=== PATIENT | male | born 1955 | race Caucasian/White ===

== ENCOUNTER 2017-03-08 11:08 | Emergency (ER) | payer MEDICAID ==
[2017-03-08 11:13] VITALS: BP 160/99
[2017-03-08] MEDS ORDERED: diphenhydrAMINE 50 MG/ML SDV IM ONE (11:13)
[2017-03-08] MEDS ORDERED: methylPREDNISolone Sodium Succinate 125 MG/2 ML SDV IM ONE (11:13)
--- NOTE | 2017-03-08 11:25 | EDM.PDOC ---
ED HPI GENERAL MEDICAL PROBLEM - General Chief Complaint: Allergic Reaction Stated Complaint: BEE STING Time Seen by Provider: 03/08/17 11:20 Source of Information: Reports: Patient History Limitations: Reports: No Limitations - History of Present Illness INITIAL COMMENTS - FREE TEXT/NARRATIVE: History of bee allergy. Was stung about 30 minutes ago x 2 to right arm. Did not use his Epipen. Does not feel short of breath. No rash yet. Onset: Today Onset Date: 03/08/17 Onset Time: 10:45 Location: Reports: Upper Extremity, Right Quality: Reports: Burning Improves with: Reports: None Worsens with: Reports: None Associated Symptoms: Reports: No Other Symptoms Right Arm Pain Score (Numeric/FACES): 5 - Related Data Allergies Allergy/AdvReac Type Severity Reaction Status Date / Time venom-honey bee Allergy Anaphylactic Verified 11/16/13 10:09 [bee venom (honey bee)] Shock alcohol AdvReac Hypertensio Verified 11/16/13 11:29 n codeine AdvReac Confusion Verified 11/16/13 11:29 lisinopril AdvReac Cough Verified 11/16/13 11:29 Penicillins AdvReac Confusion Verified 11/16/13 11:29 Home Meds: Home Meds Aspirin [Halfprin] 81 mg PO DAILY 03/28/13 [History] Insulin Glargine,Hum.Rec.Anlog [Lantus Solostar] 10 units SQ BEDTIME 03/28/13 [ History] Propranolol HCl 80 mg PO DAILY 03/28/13 [History] metFORMIN [Glucophage] 1,000 mg PO BID 03/28/13 [History] Alum Hydroxide/Mag Trisilcate 14.2 - 80 tab.chew PO PRN 08/11/13 [History] Triamterene-Hctz 25 - 37.5 mg PO DAILY 08/11/13 [History] Albuterol Sulfate [Albuterol Sulfate HFA] 108 mcg IH QID PRN 11/14/13 [History] Losartan [Cozaar] 25 mg PO DAILY 11/14/13 [History] Past Medical History Other Neuro History: had spinal menengitis when he was 6 that hurt his nervous system Endocrine/Metabolic History: Reports: 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 - Infectious Disease History Infectious Disease History: Reports: Chicken Pox, Mumps Social & Family History - Family History Family Medical History: Noncontributory - Tobacco Use Smoking Status *Q: Heavy Tobacco Smoker Years of Tobacco use: 30 Packs/Tins Daily: 1 Used Tobacco, but Quit: No Second Hand Smoke Exposure: Yes - Caffeine Use Caffeine Use: Reports: Coffee - Alcohol Use Days Per Week of Alcohol Use: 0 - Recreational Drug Use Recreational Drug Use: No ED ROS ALLERGIC REACTION - Review of Systems Review Of Systems: See Below Constitutional: Reports: No Symptoms HEENT: Reports: No Symptoms Respiratory: Reports: No Symptoms Cardiovascular: Reports: No Symptoms Endocrine: Reports: No Symptoms GI/Abdominal: Reports: No Symptoms Musculoskeletal: Reports: No Symptoms Skin: Reports: Diaphoresis, Rash (small papular rash x 2 to right arm) ED EXAM GENERAL NO PERIP PULSE - Physical Exam Exam: See Below Exam Limited By: No Limitations General Appearance: Alert, WD/WN, No Apparent Distress Ears: Normal External Exam, Normal Canal, Hearing Grossly Normal, Normal TMs Nose: Normal Inspection, Normal Mucosa, No Blood Throat/Mouth: Normal Inspection, Normal Lips, Normal Teeth, Normal Gums, Normal Oropharynx, Normal Voice, No Airway Compromise Head: Atraumatic, Normocephalic Neck: Normal Inspection, Supple, Non-Tender, Full Range of Motion Respiratory/Chest: No Respiratory Distress, Lungs Clear, Normal Breath Sounds, No Accessory Muscle Use, Chest Non-Tender Cardiovascular: Normal Peripheral Pulses, Regular Rate, Rhythm, No Edema, No Gallop, No JVD, No Murmur, No Rub Neurological: Alert, Oriented, CN II-XII Intact, Normal Cognition, Normal Gait, Normal Reflexes, No Motor/Sensory Deficits Skin Exam: Other (small reddened nodules x 2 to right arm) Course - Vital Signs Last Recorded V/S: Last Vital Signs Temp 96.1 F 03/08/17 11:13 Pulse 91 03/08/17 11:13 Resp 16 03/08/17 11:13 BP 160/99 H 03/08/17 11:13 Pulse Ox 99 03/08/17 11:13 - Orders/Labs/Meds Meds: Medications Discontinued Medications Generic Name Dose Route Start Last Admin Trade Name Freq PRN Reason Stop Dose Admin Diphenhydramine HCl 50 mg 03/08/17 11:13 03/08/17 11:19 Benadryl IM 03/08/17 11:14 50 mg ONETIME ONE Administration Methylprednisolone Sodium Succinate 125 mg 03/08/17 11:13 03/08/17 11:19 Solu-Medrol IM 03/08/17 11:14 125 mg ONETIME ONE Administration Departure - Departure Time of Disposition: 11:46 Disposition: Home, Self-Care 01 Condition: Good Clinical Impression: Bee sting Qualifiers: Encounter type: initial encounter Injury intent: accidental or unintentional Qualified Code(s): T63.441A - Toxic effect of venom of bees, accidental ( unintentional), initial encounter - Discharge Information Instructions: Anaphylactic Reaction Referrals: PCP,None [Primary Care Provider] - Forms: ED Department Discharge Additional Instructions: Benadryl 50mg IM, Solumedrol 125mg IM given with good response. Pt with improved symptoms. Never develops hives. Reaction remains localized. New Rx for Epipen given. Explained its use and indications. Pt may take Zyrtec 10mg daily x 1 week. May also use Benadryl 50mg every 8 hours as needed. - Problem List & Annotations (1) Bee sting SNOMED Code(s): 089396594 Code(s): T63.441A - TOXIC EFFECT OF VENOM OF BEES, ACCIDENTAL, INIT Status : Acute Priority: Low Current Visit: Yes Qualifiers: Encounter type: initial encounter Injury intent: accidental or unintentional Qualified Code(s): T63.441A - Toxic effect of venom of bees, accidental (unintentional), initial encounter
== END 2017-03-08 12:02 | disposition home or self-care (01) ==
LOC: JP.ED 11:08
DX: T63.441A Toxic effect of venom of bees, accidental (unintentional), initial encounter (principal); E11.9 Type 2 diabetes mellitus without complications; F17.210 Nicotine dependence, cigarettes, uncomplicated; Z79.4 Long term (current) use of insulin; Z79.899 Other long term (current) drug therapy; Z79.82 Long term (current) use of aspirin; Z88.0 Allergy status to penicillin; Z91.030 Bee allergy status; Z88.8 Allergy status to other drugs, medicaments and biological substances
CPT/HCPCS: 96372; 99283; J1200; J2930

== ENCOUNTER 2018-08-16 20:19 | Emergency (ER) | payer MEDICAID, OTHER ==
[2018-08-16 20:45] VITALS: BP 148/94
--- NOTE | 2018-08-16 21:11 | EDM.PDOC ---
ED HPI GENERAL MEDICAL PROBLEM - General Chief Complaint: Chest Pain Stated Complaint: CHEST PAINS Time Seen by Provider: 08/16/18 20:50 Source of Information: Reports: Patient, Family History Limitations: Reports: No Limitations - History of Present Illness INITIAL COMMENTS - FREE TEXT/NARRATIVE: 63-year-old male with left-sided anterior chest discomfort for the last 8 hours. It started gradually but has worsened as the day has gone on. It hurts to cough or breathe, or moves certain ways. The pain is very localized to the left anterior chest, does not radiate, causes no shortness of breath, diaphoresis or nausea or vomiting. He said his appetite is good. He has no abdominal symptoms. No fever, cough, cold symptoms, no previous history of chest pain or cardiac disease. Onset: Gradual Duration: Hour(s): (8 hours) Location: Reports: Chest Quality: Reports: Burning, Dull Worsens with: Reports: Breathing, Other (Coughing), Movement Associated Symptoms: Reports: No Other Symptoms Treatments [employer]ODU[employer] SUPER[employer]OR: Reports: Other (see below) Other Treatments [employer]ODU[employer] SUPER[employer]OR: none Epigastric Pain Score (Numeric/FACES): 4 - Related Data Allergies Allergy/AdvReac Type Severity Reaction Status Date / Time venom-honey bee Allergy Anaphylactic Verified 11/16/13 10:09 [bee venom (honey bee)] Shock alcohol AdvReac Hypertensio Verified 11/16/13 11:29 n codeine AdvReac Confusion Verified 11/16/13 11:29 lisinopril AdvReac Cough Verified 11/16/13 11:29 Penicillins AdvReac Confusion Verified 11/16/13 11:29 Home Meds: Home Meds Aspirin [Halfprin] 81 mg PO DAILY 03/28/13 [History] Insulin Glargine,Hum.Rec.Anlog [Lantus Solostar] 20 units SQ BID 03/28/13 [ History] Propranolol HCl 80 mg PO DAILY 03/28/13 [History] metFORMIN [Glucophage] 1,000 mg PO BID 03/28/13 [History] Alum Hydroxide/Mag Trisilcate 14.2 - 80 tab.chew PO DAILY 08/11/13 [History] Triamterene-Hctz 25 - 37.5 mg PO DAILY 08/11/13 [History] Albuterol Sulfate [Albuterol Sulfate HFA] 108 mcg IH QID PRN 11/14/13 [History] Losartan [Cozaar] 25 mg PO DAILY 11/14/13 [History] Past Medical History HEENT History: Reports: Hard of Hearing Other HEENT History: one ear is plugged and wont pop Cardiovascular History: Reports: Hypertension Gastrointestinal History: Reports: Other (See Below) Other Gastrointestinal History: diarrhea for the last 2-3 years of unknown origin Other Genitourinary History: renal cyst Musculoskeletal History: Reports: Back Pain, Chronic Other Neuro History: had spinal menengitis when he was 6 that hurt his nervous system Endocrine/Metabolic History: Reports: IDDM Other Oncologic History: 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 Denies: Throat Pain Respiratory: Reports: Pleuritic Chest Pain, Cough. Denies: Shortness of Breath Cardiovascular: Reports: Chest Pain. Denies: Dyspnea on Exertion, Palpitations GI/Abdominal: Denies: Abdominal Pain, Nausea, Vomiting : Reports: No Symptoms Musculoskeletal: Reports: Other (Chronic arthritis) Skin: Reports: No Symptoms Neurological: Reports: No Symptoms ED EXAM, GENERAL - Physical Exam Exam: See Below Exam Limited By: No Limitations General Appearance: Alert, No Apparent Distress Head: Atraumatic Neck: Supple, Non-Tender Respiratory/Chest: No Respiratory Distress, Lungs Clear, Other (Patient has focal chest tenderness to palpation along the left lateral costal chondral junction) Cardiovascular: Regular Rate, Rhythm GI/Abdominal: Soft, Non-Tender Extremities: Normal Inspection. No: Pedal Edema Neurological: Alert, Oriented Psychiatric: Normal Affect, Normal Mood Skin Exam: Warm, Dry Course - Vital Signs Last Recorded V/S: Last Vital Signs Temp 96.9 F 08/16/18 20:47 Pulse 71 08/16/18 20:47 Resp 16 08/16/18 20:47 BP 148/94 H 08/16/18 20:47 Pulse Ox 98 08/16/18 20:47 - Orders/Labs/Meds Labs: Laboratory Tests 08/16/18 08/16/18 Range/Units 21:18 21:18 WBC 9.0 (4.5-11.0) K/uL RBC 5.00 (4.30-5.90) M/uL Hgb 14.3 (12.0-15.0) g/dL Hct 42.8 (40.0-54.0) % MCV 86 (80-98) fL MCH 29 (27-31) pg MCHC 33 (32-36) % Plt Count 250 (150-400) K/uL Neut % (Auto) 54 (36-66) % Lymph % (Auto) 30 (24-44) % Shelby % (Auto) 12 H (2-6) % Eos % (Auto) 4 (2-4) % Baso % (Auto) 0 (0-1) % Sodium 143 (140-148) mmol/L Potassium 3.7 (3.6-5.2) mmol/L Chloride 103 (100-108) mmol/L Carbon Dioxide 31 (21-32) mmol/L Anion Gap 9.2 (5.0-14.0) mmol/L BUN 17 (7-18) mg/dL Creatinine 0.9 (0.8-1.3) mg/dL Est Cr Clr Drug Dosing 103.14 mL/min Estimated GFR (MDRD) > 60 (>60) Glucose 111 H (74-106) mg/dL Calcium 9.6 (8.5-10.1) mg/dL Total Bilirubin 0.4 (0.2-1.0) mg/dL AST 22 (15-37) U/L ALT 46 (12-78) U/L Alkaline Phosphatase 84 (46-116) U/L Troponin I < 0.017 (0.000-0.056) ng/mL Total Protein 7.3 (6.4-8.2) g/dL Albumin 3.8 (3.4-5.0) g/dL Globulin 3.5 (2.3-3.5) g/dL Albumin/Globulin Ratio 1.1 L (1.2-2.2) - Re-Assessments/Exams Free Text/Narrative Re-Assessment/Exam: 08/16/18 21:11 A two-view chest x-ray will be obtained, along with a CBC, CMP and troponin. 08/16/18 21:46 Lab and x-ray are all normal. He'll be diagnosed and discharged with costochondritis. Recommended an anti-inflammatory for the next couple of days and return if worsening. Departure - Departure Time of Disposition: 21:52 Disposition: Home, Self-Care 01 Condition: Good Clinical Impression: Costochondritis - Discharge Information Instructions: Costochondritis, [id number] Referrals: Micah Morton PA [Primary Care Provider] - Forms: ED Department Discharge Care Plan Goals: Try ibuprofen or naproxen for a couple of days, increase activity as tolerated and return anytime if worsening or concerns.
--- NOTE | 2018-08-16 21:56 | CRLCR ---
Indication: Dyspnea Technique: Chest 2 views Comparison: None Findings/Impression: Cardiovascular and mediastinum: Unremarkable cardiac size. Lungs and pleural spaces: Left hilar prominence could be related to central vasculature. Recommend followup. If indicated, consider CT. No consolidation. A tiny nodular opacity in the right upper lung could represent a vessel or a small granuloma. No pleural effusions. Bones and soft tissues: A scoliotic deformity. Dictated by Erik Garcia MD @ 08/16/2018 9:54:43 PM Dictated by: Erik Garcia MD @ 08/16/2018 21:54:54 (Electronically Signed)
== END 2018-08-16 21:53 | disposition home or self-care (01) ==
LOC: JP.ED 20:19
DX: M94.0 Chondrocostal junction syndrome [Tietze] (principal); I10 Essential (primary) hypertension; F17.290 Nicotine dependence, other tobacco product, uncomplicated; Z91.030 Bee allergy status; Z79.82 Long term (current) use of aspirin; Z79.899 Other long term (current) drug therapy; Z88.5 Allergy status to narcotic agent; Z88.0 Allergy status to penicillin
CPT/HCPCS: 36415; 71046; 80053; 84484; 85025; 99283

== ENCOUNTER 2019-09-07 07:43 | Day surgery (SDC) | payer OTHER ==
[~2019-09-07 07:43] MED LIST: Midazolam 1 MG/ML 2 ML SDV ONE; Propofol 200 MG/20 ML SDV ONE; fentaNYL 100 MCG/2 ML SDV ONE
[2019-09-07] MEDS ORDERED: Sodium Chloride 0.9% 1,000 ML IV SCH (08:30)
[2019-09-07 10:22] VITALS: BP 111/78; PULSE 83
--- NOTE | 2019-09-07 11:04 | OR ---
DATE OF PROCEDURE: 09/07/2019 SURGEON: Loyd Izaguirre MD PROCEDURE: Colonoscopy. FINDINGS: Sigmoid colon polyp, approximately 5 mm, completely removed using hot snare device. PREOPERATIVE DIAGNOSIS: Screening colonoscopy. POSTOPERATIVE DIAGNOSIS: Screening colonoscopy. RISKS: Risks, benefits, alternatives, and limitations including but not limited to infection, bleeding, and perforation were explained to the patient, who wished to proceed. PROCEDURE IN DETAIL: The patient was placed in a left lateral decubitus position. Digital rectal exam was performed without abnormality. Scope was introduced and advanced atraumatically to the ileocecal valve. Scope was brought back through the ascending, transverse, descending colon, and retroflexed. Aforementioned polyp was completely removed. No diverticulosis. No abnormalities on retroflexion. The patient tolerated the procedure well. Loyd Izaguirre MD /[id number]
== END 2019-09-07 10:37 | disposition home or self-care (01) ==
LOC: JP.SDS 07:43
PROVIDERS: ATTEND Surgery
DX: Z12.11 Encounter for screening for malignant neoplasm of colon (principal); K63.5 Polyp of colon; I10 Essential (primary) hypertension; E11.9 Type 2 diabetes mellitus without complications; F17.200 Nicotine dependence, unspecified, uncomplicated
CPT/HCPCS: 45385; J2250; J2704; J3010; J7030

== ENCOUNTER 2021-08-08 23:27 | Emergency (ER) | payer MEDICARE, BC ==
[2021-08-09 00:03] VITALS: BP 143/84; PULSE 93
== END 2021-08-09 01:23 | disposition home or self-care (01) ==
LOC: JP.ED 23:27
DX: I87.2 Venous insufficiency (chronic) (peripheral) (principal); E11.9 Type 2 diabetes mellitus without complications; I10 Essential (primary) hypertension; K21.9 Gastro-esophageal reflux disease without esophagitis; Z88.0 Allergy status to penicillin; Z88.5 Allergy status to narcotic agent; Z91.030 Bee allergy status; Z88.8 Allergy status to other drugs, medicaments and biological substances; Z79.82 Long term (current) use of aspirin; Z79.4 Long term (current) use of insulin; Z79.899 Other long term (current) drug therapy; Z72.0 Tobacco use
CPT/HCPCS: 36415; 80048; 83880; 84484; 85025; 99283; 99284

== ENCOUNTER 2022-11-18 12:41 | Emergency (ER) | payer MEDICARE, BC ==
[2022-11-18] MEDS ORDERED: Ondansetron 4 MG/2 ML SDV IVPUSH ONE (13:43)
[2022-11-18] MEDS ORDERED: Sodium Chloride 0.9% 1,000 ML IV SCH (13:45)
[2022-11-18 13:50] LABS: HEMATOCRIT 40.7 % (38.4-49.7); HEMOGLOBIN 14.6 g/dL (12.9-16.9); MEAN CORPUSCULAR HEMOGLOBIN 31.6 pg (31.6-35.5); MEAN CORPUSCULAR HGB CONC 35.9 g/dL (31.6-35.5); MEAN CORPUSCULAR VOLUME 88.1 fL (81.4-99.0); RED BLOOD CELL COUNT 4.62 M/uL (4.14-5.76); WHITE BLOOD CELL COUNT,WBC 9.4 K/uL (3.2-11.0)
[2022-11-18 14:00] LABS: BASE EXCESS VENOUS 2.1 mm/L; BICARBONATE,VENOUS 26.3 mmol/L; CARBOXYHEMOGLOBIN 2.5 % (0.0-1.6); METHEMOGLOBIN 0.8 %; O2 SATURATION VENOUS 82.5; OXYHEMOGLOBIN 79.8 %; PCO2 VENOUS 41.3 mm/Hg; PH,VENOUS 7.419 (7.350-7.450); PO2 VENOUS 48.7 mm/Hg; TOTAL HEMOGLOBIN 14.1 g/dL (13.5-18.0)
[2022-11-18 14:01] LABS: ALANINE AMINOTRANSFERASE,ALT 59 U/L (12-78); ALBUMIN 3.7 g/dL (3.4-5.0); ALKALINE PHOSPHATASE 90 U/L (46-116); ASPARTATE AMNIOTRANSFERASE,AST 43 U/L (15-37); BLOOD UREA NITROGEN,BUN 12 mg/dL (7-18); CALCIUM 9.6 mg/dL (8.5-10.1); CARBON DIOXIDE,CO2 26 mmol/L (21-32); CHLORIDE,CL 100 mmol/L (100-108); CREATININE 1.1 mg/dL (0.8-1.3); EST CRCL DRUG DOSING (CG) 80.01 mL/min; ESTIMATED GFR 74 mL/min (>60); GLUCOSE RANDOM 210 mg/dL (74-106); POTASSIUM,K 3.8 mmol/L (3.6-5.2); PROTEIN TOTAL,TP 7.4 g/dL (6.4-8.2); SODIUM,NA 137 mmol/L (140-148)
[2022-11-18 14:06] LABS: ANION GAP 14.8 mmol/L (5.0-14.0)
[2022-11-18 14:12] LABS: INR 1.2; PROTHROMBIN TIME 11.6 sec (9.2-10.6)
[2022-11-18 15:22] VITALS: BP 169/92; PULSE 88
== END 2022-11-18 17:30 | disposition home or self-care (01) ==
LOC: JP.ED 12:41
DX: E86.0 Dehydration (principal); R42 Dizziness and giddiness; R11.2 Nausea with vomiting, unspecified; I10 Essential (primary) hypertension; E11.9 Type 2 diabetes mellitus without complications; Z88.6 Allergy status to analgesic agent; Z91.038 Other insect allergy status; Z88.5 Allergy status to narcotic agent; Z88.0 Allergy status to penicillin; Z79.82 Long term (current) use of aspirin; Z79.899 Other long term (current) drug therapy; Z79.84 Long term (current) use of oral hypoglycemic drugs; Z79.4 Long term (current) use of insulin; Z90.49 Acquired absence of other specified parts of digestive tract
CPT/HCPCS: 36415; 70450; 70551; 80053; 82803; 82947; 83605; 85027; 85610; 96361; 96374; 99284; J2405; J7030

== ENCOUNTER 2023-01-25 07:08 | Inpatient (IN) | payer MEDICARE, BC ==
[2023-01-25 07:44] LABS: HEMATOCRIT 39.8 % (38.4-49.7); HEMOGLOBIN 14.1 g/dL (12.9-16.9); MEAN CORPUSCULAR HEMOGLOBIN 31.3 pg (31.6-35.5); MEAN CORPUSCULAR HGB CONC 35.4 g/dL (31.6-35.5); MEAN CORPUSCULAR VOLUME 88.4 fL (81.4-99.0); RED BLOOD CELL COUNT 4.5 M/uL (4.14-5.76); WHITE BLOOD CELL COUNT,WBC 8.2 K/uL (3.2-11.0)
[2023-01-25] MEDS ORDERED: Nozin Nasal Sanitizer NASBOTH ONE (08:00)
[2023-01-25] MEDS ORDERED: Lactated Ringers 1,000 ML IV SCH (08:00)
[2023-01-25 08:09] LABS: A/G RATIO 1.1 (1.2-2.2); ALANINE AMINOTRANSFERASE,ALT 51 U/L (12-78); ALBUMIN 3.6 g/dL (3.4-5.0); ALKALINE PHOSPHATASE 61 U/L (46-116); ASPARTATE AMNIOTRANSFERASE,AST 36 U/L (15-37); BILIRUBIN TOTAL 1.2 mg/dL (0.2-1.0); BLOOD UREA NITROGEN,BUN 15 mg/dL (7-18); CALCIUM 9.2 mg/dL (8.5-10.1); CARBON DIOXIDE,CO2 26 mmol/L (21-32); CHLORIDE,CL 103 mmol/L (100-108); CREATININE 1.2 mg/dL (0.8-1.3); EST CRCL DRUG DOSING (CG) 73.34 mL/min; ESTIMATED GFR 66 mL/min (>60); GLUCOSE RANDOM 161 mg/dL (74-106); POTASSIUM,K 3.5 mmol/L (3.6-5.2); SODIUM,NA 140 mmol/L (140-148)
[2023-01-25 08:10] LABS: ANION GAP 14.5 mmol/L (5.0-14.0)
[2023-01-25] MEDS ORDERED: ceFAZolin 2 GM in Premix Bag 1 BAG IV ONE (08:30)
[2023-01-25] MEDS ORDERED: Tranexamic Acid 1,000 MG in Sodium Chloride 0.9% 50 ML IV ONE (08:45)
[2023-01-25] MEDS ORDERED: fentaNYL 250 MCG/5 ML SDV ONE (13:03)
[2023-01-25] MEDS ORDERED: Rocuronium 50 MG/5 ML Vial ONE ×2 (13:04→14:43)
[2023-01-25] MEDS ORDERED: Propofol 200 MG/20 ML SDV ONE (13:04)
[2023-01-25] MEDS ORDERED: Glycopyrrolate 0.2 MG/ML 5 ML MDV ONE (13:04)
[2023-01-25] MEDS ORDERED: Neostigmine Methylsulfate 1 MG/ML 5 ML Syringe ONE (13:04)
[2023-01-25] MEDS ORDERED: Succinylcholine 200 MG/10 ML MDV ONE (13:04)
[2023-01-25] MEDS ORDERED: Ondansetron 4 MG/2 ML SDV ONE (13:04)
[2023-01-25] MEDS ORDERED: Docusate Sodium 100 MG Cap PO PRN (13:39)
[2023-01-25] MEDS ORDERED: Ondansetron 4 MG/2 ML SDV IVPUSH PRN (13:39)
[2023-01-25] MEDS ORDERED: Morphine 2 MG/ML SYRINGE IVPUSH PRN (13:39)
[2023-01-25] MEDS ORDERED: 50% Dextrose in Water 50 ML Syringe IVPUSH PRN (13:43)
[2023-01-25] MEDS ORDERED: EPINEPHRINE 0.3 MG/0.3 ML IM PRN (13:43)
[2023-01-25] MEDS ORDERED: Non-Formulary Medication 1 Each (Albuterol Sulfate [Proair Respiclick] 90 MCG Aer.Pow.Ba) IH PRN (13:43)
[2023-01-25] MEDS ORDERED: Glucagon,Human Recombinant 1 MG Vial IM PRN (13:43)
[2023-01-25] MEDS ORDERED: Albuterol 6.7 GM Inhaler INH PRN (13:51)
[2023-01-25] MEDS ORDERED: ePHEDrine 50 MG/ML SDV ONE (14:11)
[2023-01-25] MEDS ORDERED: Lactated Ringers 1,000 ML ONE (14:16)
[2023-01-25] MEDS ORDERED: EPINEPHrine 1 MG/ML SDV IM PRN (14:57)
[2023-01-25] MEDS ORDERED: Morphine 2 MG/ML SYRINGE IVPUSH ONE (16:58)
[2023-01-25] MEDS: Insulin Lispro 100 Unit/ML 3 ML KwikPen SUBCUT SCH (17:45)
[2023-01-25] MEDS: Acetaminophen 325 MG Tab PO SCH ×2 (17:50→23:57)
[2023-01-25] MEDS: oxyCODONE 5 MG Tab PO PRN ×2 (17:51→23:56)
[2023-01-25] MEDS: Sodium Chloride 0.9% 1,000 ML IV SCH (19:20)
[2023-01-25] MEDS: ceFAZolin 2 GM in Premix Bag 1 BAG IV SCH (20:30)
[2023-01-25] MEDS: Nozin Nasal Sanitizer NASBOTH SCH (20:30)
[2023-01-25] MEDS: Propranolol 40 MG Tab PO SCH (20:31)
[2023-01-25] MEDS: Primidone 50 MG Tab PO SCH (20:32)
[2023-01-25] MEDS: Insulin Glargine,Human Rec. Analog 100 Units/ML 3 ML Pen SUBCUT SCH (20:41)
[2023-01-26] MEDS: Sodium Chloride 0.9% 1,000 ML IV SCH (03:45)
[2023-01-26] MEDS: Acetaminophen 325 MG Tab PO SCH ×3 (05:05→17:54)
[2023-01-26] MEDS: ceFAZolin 2 GM in Premix Bag 1 BAG IV SCH (05:06)
[2023-01-26 05:50] LABS: BASOPHILS ABSOLUTE AUTO 0.05 K/uL (0.00-0.10); BASOPHILS PERCENT AUTO 0.5 % (0.1-1.3); EOSINOPHILS ABSOLUTE AUTO 0.23 K/uL (0.00-0.40); EOSINOPHILS PERCENT AUTO 2.2 % (0.0-5.4); HEMATOCRIT 31.4 % (38.4-49.7); IMMATURE GRAN ABSOLUTE AUTO 0.04 K/uL (0.00-0.23); IMMATURE GRAN PERCENT AUTO 0.4 % (0.0-0.7); LYMPHOCYTES ABSOLUTE AUTO 2.26 K/uL (0.8-3.3); LYMPHOCYTES PERCENT AUTO 21.5 % (11.4-47.7); MEAN CORPUSCULAR HEMOGLOBIN 31.6 pg (31.6-35.5); MEAN CORPUSCULAR VOLUME 90.2 fL (81.4-99.0); MONOCYTES ABSOLUTE AUTO 1.04 K/uL (0.20-0.90); MONOCYTES PERCENT AUTO 9.9 % (3.3-12.6); NEUTROPHILS PERCENT AUTO 65.5 % (40.0-78.1); PLATELET COUNT,PLT 158 K/uL (130-375); RED BLOOD CELL COUNT 3.48 M/uL (4.14-5.76); WHITE BLOOD CELL COUNT,WBC 10.5 K/uL (3.2-11.0)
[2023-01-26] MEDS: metFORMIN 500 MG Tab PO SCH ×2 (08:24→20:22)
[2023-01-26] MEDS: Insulin Lispro 100 Unit/ML 3 ML KwikPen SUBCUT SCH ×3 (08:24→16:23)
[2023-01-26] MEDS: Famotidine 20 MG Tab PO SCH (08:25)
[2023-01-26] MEDS: Aspirin 325 MG Tab.EC PO SCH ×2 (08:25→20:22)
[2023-01-26] MEDS: Cholecalciferol (Vitamin D3) 25 MCG Tab PO SCH (08:26)
[2023-01-26] MEDS: Hydrochlorothiazide/Triamterene 25-37.5 Tab PO SCH (08:26)
[2023-01-26] MEDS: Insulin Glargine,Human Rec. Analog 100 Units/ML 3 ML Pen SUBCUT SCH ×2 (08:29→20:23)
[2023-01-26] MEDS: DEUTETRABENAZINE 9 MG PO SCH ×2 (08:30→16:22)
[2023-01-26] MEDS: Nozin Nasal Sanitizer NASBOTH SCH ×2 (08:31→20:21)
[2023-01-26] MEDS: Propranolol 40 MG Tab PO SCH ×2 (08:32→20:22)
[2023-01-26] MEDS: Losartan 25 MG Tab PO SCH (08:32)
[2023-01-26] MEDS: oxyCODONE 5 MG Tab PO PRN ×2 (09:47→16:21)
[2023-01-26] MEDS: Primidone 50 MG Tab PO SCH (20:23)
[2023-01-27] MEDS: Acetaminophen 325 MG Tab PO SCH ×5 (00:21→23:38)
[2023-01-27] MEDS: oxyCODONE 5 MG Tab PO PRN ×3 (06:09→12:30)
[2023-01-27] MEDS: DEUTETRABENAZINE 9 MG PO SCH ×2 (07:57→17:32)
[2023-01-27] MEDS: Insulin Lispro 100 Unit/ML 3 ML KwikPen SUBCUT SCH ×3 (07:57→16:20)
[2023-01-27] MEDS: Nozin Nasal Sanitizer NASBOTH SCH ×2 (08:02→20:30)
[2023-01-27] MEDS: metFORMIN 500 MG Tab PO SCH ×2 (08:03→20:31)
[2023-01-27] MEDS: Losartan 25 MG Tab PO SCH (08:04)
[2023-01-27] MEDS: Famotidine 20 MG Tab PO SCH (08:04)
[2023-01-27] MEDS: Hydrochlorothiazide/Triamterene 25-37.5 Tab PO SCH (08:04)
[2023-01-27] MEDS: Cholecalciferol (Vitamin D3) 25 MCG Tab PO SCH (08:04)
[2023-01-27] MEDS: Aspirin 325 MG Tab.EC PO SCH ×2 (08:04→20:31)
[2023-01-27] MEDS: Propranolol 40 MG Tab PO SCH ×2 (08:05→20:31)
[2023-01-27] MEDS: Insulin Glargine,Human Rec. Analog 100 Units/ML 3 ML Pen SUBCUT SCH ×2 (08:05→20:32)
[2023-01-27] MEDS ORDERED: Tamsulosin 0.4 MG Cap.ER PO ONE (09:00)
[2023-01-27] MEDS: Primidone 50 MG Tab PO SCH (20:33)
[2023-01-27] MEDS ORDERED: Tamsulosin 0.4 MG Cap.ER PO SCH (21:00)
[2023-01-28] MEDS: Acetaminophen 325 MG Tab PO SCH ×2 (05:30→12:03)
[2023-01-28] MEDS: DEUTETRABENAZINE 9 MG PO SCH (07:59)
[2023-01-28] MEDS: Insulin Lispro 100 Unit/ML 3 ML KwikPen SUBCUT SCH ×2 (08:00→12:01)
[2023-01-28] MEDS: Insulin Glargine,Human Rec. Analog 100 Units/ML 3 ML Pen SUBCUT SCH (08:01)
[2023-01-28] MEDS: metFORMIN 500 MG Tab PO SCH (08:10)
[2023-01-28] MEDS: Cholecalciferol (Vitamin D3) 25 MCG Tab PO SCH (08:10)
[2023-01-28] MEDS: Nozin Nasal Sanitizer NASBOTH SCH (08:10)
[2023-01-28] MEDS: Propranolol 40 MG Tab PO SCH (08:11)
[2023-01-28] MEDS: Losartan 25 MG Tab PO SCH (08:11)
[2023-01-28] MEDS: Aspirin 325 MG Tab.EC PO SCH (08:14)
[2023-01-28] MEDS: Hydrochlorothiazide/Triamterene 25-37.5 Tab PO SCH (08:14)
[2023-01-28] MEDS: Famotidine 20 MG Tab PO SCH (08:14)
[2023-01-28 11:29] VITALS: BP 105/63; PULSE 90
== END 2023-01-28 13:49 | disposition home or self-care (01) | DRG 468 ==
LOC: JP.SDS 07:08 → JP.MS 13:39 → JP.SDS 01-26 08:20 → JP.MS 01-26 08:20
PROVIDERS: ADMIT Specialist; ATTEND Specialist
PROC: 0SR90JA Replacement of Right Hip Joint with Synthetic Substitute, Uncemented, Open Approach (ICD-10-PCS; principal; 2023-01-25)
PROC: 0SP90JZ Removal of Synthetic Substitute from Right Hip Joint, Open Approach (ICD-10-PCS; 2023-01-25)
DX: T84.030A Mechanical loosening of internal right hip prosthetic joint, initial encounter (principal); M25.851 Other specified joint disorders, right hip; J44.9 Chronic obstructive pulmonary disease, unspecified; E11.65 Type 2 diabetes mellitus with hyperglycemia; I10 Essential (primary) hypertension; E78.5 Hyperlipidemia, unspecified; K21.9 Gastro-esophageal reflux disease without esophagitis; N40.0 Benign prostatic hyperplasia without lower urinary tract symptoms; Z96.641 Presence of right artificial hip joint; Z88.0 Allergy status to penicillin; Z88.5 Allergy status to narcotic agent; Z91.030 Bee allergy status; Z88.8 Allergy status to other drugs, medicaments and biological substances; Z79.4 Long term (current) use of insulin; Z79.82 Long term (current) use of aspirin; Z79.899 Other long term (current) drug therapy; Y83.1 Surgical operation with implant of artificial internal device as the cause of abnormal reaction of the patient, or of later complication, without mention of misadventure at the time of the procedure
CPT/HCPCS: 27134; 36415 ×2; 72170 ×2; 80053; 85025; 85027; 86850; 86900; 86901; A9270 ×9; C1713 ×3; C1776 ×4; J0330; J0690 ×3; J1815 ×2; J2405; J2704; J2710; J3010; J3490 ×2; J7030 ×2; J7120 ×2; 51701; 51702; 82947; 97110-GP; 97116-GP; 97162-GP; 97165-GO; 97530-GP; 97535-GP

== ENCOUNTER 2023-01-29 12:04 | Emergency (ER) | payer MEDICARE, BC ==
[2023-01-29] MEDS ORDERED: Polyethylene Glycol 3350 Powder 17 GM Packet PO ONE (15:55)
[2023-01-29 17:19] VITALS: BP 119/73; PULSE 83
== END 2023-01-29 17:45 | disposition home or self-care (01) ==
LOC: JP.ED 12:04
DX: R33.9 Retention of urine, unspecified (principal); K59.04 Chronic idiopathic constipation; I10 Essential (primary) hypertension; N40.0 Benign prostatic hyperplasia without lower urinary tract symptoms; K21.9 Gastro-esophageal reflux disease without esophagitis; E11.9 Type 2 diabetes mellitus without complications; Z91.030 Bee allergy status; Z88.5 Allergy status to narcotic agent; Z88.8 Allergy status to other drugs, medicaments and biological substances; Z88.0 Allergy status to penicillin; Z79.82 Long term (current) use of aspirin; Z79.899 Other long term (current) drug therapy; Z79.4 Long term (current) use of insulin
CPT/HCPCS: 51702; 99283; A9270

== ENCOUNTER 2023-02-06 20:02 | Inpatient (IN) | payer MEDICARE, BC ==
[2023-02-06] MEDS ORDERED: Sodium Chloride 0.9% 10 ML Syringe FLUSH PRN (20:34)
[2023-02-06 20:50] LABS: BASOPHILS ABSOLUTE AUTO 0.05 K/uL (0.00-0.10); BASOPHILS PERCENT AUTO 0.5 % (0.1-1.3); EOSINOPHILS ABSOLUTE AUTO 0.07 K/uL (0.00-0.40); EOSINOPHILS PERCENT AUTO 0.7 % (0.0-5.4); HEMATOCRIT 32.5 % (38.4-49.7); HEMOGLOBIN 11.2 g/dL (12.9-16.9); IMMATURE GRAN ABSOLUTE AUTO 0.06 K/uL (0.00-0.23); IMMATURE GRAN PERCENT AUTO 0.6 % (0.0-0.7); LYMPHOCYTES ABSOLUTE AUTO 0.49 K/uL (0.8-3.3); MEAN CORPUSCULAR HEMOGLOBIN 31.4 pg (31.6-35.5); MEAN CORPUSCULAR HGB CONC 34.5 g/dL (31.6-35.5); MONOCYTES ABSOLUTE AUTO 0.75 K/uL (0.20-0.90); MONOCYTES PERCENT AUTO 7.6 % (3.3-12.6); NEUTROPHILS ABSOLUTE AUTO 8.47 K/uL (1.0-7.6); NEUTROPHILS PERCENT AUTO 85.6 % (40.0-78.1); PLATELET COUNT,PLT 187 K/uL (130-375); RED BLOOD CELL COUNT 3.57 M/uL (4.14-5.76); WHITE BLOOD CELL COUNT,WBC 9.9 K/uL (3.2-11.0)
[2023-02-06] MEDS ORDERED: Acetaminophen 500 MG Tab PO ONE (20:54)
[2023-02-06 21:12] LABS: A/G RATIO 0.8 (1.2-2.2); ALANINE AMINOTRANSFERASE,ALT 22 U/L (12-78); ALBUMIN 2.9 g/dL (3.4-5.0); ALKALINE PHOSPHATASE 105 U/L (46-116); ANION GAP 12.9 mmol/L (5.0-14.0); ASPARTATE AMNIOTRANSFERASE,AST 24 U/L (15-37); BILIRUBIN TOTAL 1.2 mg/dL (0.2-1.0); BLOOD UREA NITROGEN,BUN 17 mg/dL (7-18); C-REACTIVE PROTEIN 4.05 mg/dL (0.0-0.3); CALCIUM 8.6 mg/dL (8.5-10.1); CARBON DIOXIDE,CO2 27 mmol/L (21-32); CHLORIDE,CL 94 mmol/L (100-108); CREATININE 1.4 mg/dL (0.8-1.3); EST CRCL DRUG DOSING (CG) 62.86 mL/min; ESTIMATED GFR 55 mL/min (>60); GLUCOSE RANDOM 185 mg/dL (74-106); POTASSIUM,K 3.9 mmol/L (3.6-5.2); PROTEIN TOTAL,TP 6.7 g/dL (6.4-8.2); SODIUM,NA 130 mmol/L (140-148)
[2023-02-06 21:14] LABS: LACTIC ACID 2.4 mmol/L (0.4-2.0)
[2023-02-06] MEDS ORDERED: cefTRIAXone 2 GM in Sodium Chloride 0.9% 50 ML IV ONE (21:38)
[2023-02-06] MEDS ORDERED: Sodium Chloride 0.9% 1,000 ML IV SCH (21:45)
[2023-02-06 22:26] LABS: BILIRUBIN,URINE NEGATIVE (NEGATIVE); COLOR,URINE YELLOW (YELLOW); GLUCOSE,URINE NEGATIVE (NEGATIVE); KETONES,URINE NEGATIVE (NEGATIVE); LEUKOCYTE ESTERASE,URINE TRACE (NEGATIVE); NITRITE,URINE POSITIVE (NEGATIVE); OCCULT BLOOD,URINE MODERATE (NEGATIVE); PH,URINE 5.5 (5.0-8.0); PROTEIN,URINE 100 mg/dL (NEGATIVE); UROBILINOGEN,URINE 0.2 EU/dL (0.2-1.0)
[2023-02-06 22:29] LABS: AMORPHOUS SEDIMENT,URINE NOT SEEN; APPEARANCE,URINE CLOUDY (CLEAR); BACTERIA,URINE MODERATE; EPITHELIAL CELLS,URINE RARE; MUCUS,URINE FEW; WBC,URINE 20-30 (0-5)
[2023-02-07] MEDS ORDERED: Sennosides/Docusate Sodium 50-8.6 MG Tab PO PRN (00:21)
[2023-02-07] MEDS ORDERED: Magnesium Hydroxide 400 MG/5 ML Susp 30 ML Cup PO PRN (00:21)
[2023-02-07] MEDS ORDERED: Ondansetron 4 MG Tab.DIS PO PRN (00:21)
[2023-02-07] MEDS ORDERED: Ondansetron 4 MG/2 ML SDV IV PRN (00:21)
[2023-02-07] MEDS ORDERED: Melatonin 3 MG Tab PO PRN (00:21)
[2023-02-07] MEDS ORDERED: Glucagon,Human Recombinant 1 MG Vial IM PRN (00:21)
[2023-02-07] MEDS ORDERED: 50% Dextrose in Water 50 ML Syringe IVPUSH PRN (00:21)
[2023-02-07] MEDS ORDERED: Albuterol 6.7 GM Inhaler INH PRN (00:21)
[2023-02-07] MEDS ORDERED: Sodium Chloride 0.9% 1,000 ML IV SCH (00:21)
[2023-02-07] MEDS ORDERED: Insulin Lispro 100 Unit/ML 3 ML KwikPen SUBCUT SCH (00:21)
[2023-02-07] MEDS: Insulin Glargine,Human Rec. Analog 100 Units/ML 3 ML Pen SUBCUT SCH ×3 (00:34→21:31)
[2023-02-07] MEDS: Propranolol 80 MG Cap.ER PO SCH ×3 (01:48→21:52)
[2023-02-07] MEDS: Enoxaparin 40 MG/0.4 ML Syringe SUBCUT SCH (01:48)
[2023-02-07] MEDS: Tamsulosin 0.4 MG Cap.ER PO SCH ×3 (01:48→21:38)
[2023-02-07] MEDS: Primidone 50 MG Tab PO SCH ×2 (01:48→21:38)
[2023-02-07 04:54] LABS: BASOPHILS ABSOLUTE AUTO 0.03 K/uL (0.00-0.10); BASOPHILS PERCENT AUTO 0.4 % (0.1-1.3); EOSINOPHILS ABSOLUTE AUTO 0.06 K/uL (0.00-0.40); EOSINOPHILS PERCENT AUTO 0.8 % (0.0-5.4); HEMATOCRIT 28.4 % (38.4-49.7); HEMOGLOBIN 10.1 g/dL (12.9-16.9); IMMATURE GRAN ABSOLUTE AUTO 0.05 K/uL (0.00-0.23); IMMATURE GRAN PERCENT AUTO 0.7 % (0.0-0.7); LYMPHOCYTES PERCENT AUTO 5.2 % (11.4-47.7); MEAN CORPUSCULAR HEMOGLOBIN 31.9 pg (31.6-35.5); MEAN CORPUSCULAR HGB CONC 35.6 g/dL (31.6-35.5); MEAN CORPUSCULAR VOLUME 89.6 fL (81.4-99.0); MONOCYTES ABSOLUTE AUTO 0.66 K/uL (0.20-0.90); MONOCYTES PERCENT AUTO 8.6 % (3.3-12.6); NEUTROPHILS ABSOLUTE AUTO 6.44 K/uL (1.0-7.6); NEUTROPHILS PERCENT AUTO 84.3 % (40.0-78.1); PLATELET COUNT,PLT 144 K/uL (130-375); RED BLOOD CELL COUNT 3.17 M/uL (4.14-5.76); WHITE BLOOD CELL COUNT,WBC 7.6 K/uL (3.2-11.0)
[2023-02-07] MEDS: Acetaminophen 325 MG Tab PO PRN ×3 (05:22→21:35)
[2023-02-07 05:42] LABS: CALCIUM 8.3 mg/dL (8.5-10.1); CREATININE 1.2 mg/dL (0.8-1.3); EST CRCL DRUG DOSING (CG) 73.31 mL/min; POTASSIUM,K 3.9 mmol/L (3.6-5.2)
[2023-02-07 05:49] LABS: ANION GAP 12.9 mmol/L (5.0-14.0)
[2023-02-07] MEDS: metFORMIN 500 MG Tab PO SCH ×2 (08:46→16:54)
[2023-02-07] MEDS: Pantoprazole 40 MG Tab.CR PO SCH (08:46)
[2023-02-07] MEDS: Insulin Lispro 100 Unit/ML 3 ML KwikPen SUBCUT SCH ×4 (08:47→21:32)
[2023-02-07] MEDS: DEUTETRABENAZINE PO SCH ×2 (14:15→21:50)
[2023-02-07] MEDS: cefTRIAXone 2 GM in Sodium Chloride 0.9% 50 ML IV SCH (21:38)
[2023-02-07] MEDS: atorvaSTATin 10 MG Tab PO SCH (21:38)
[2023-02-07] MEDS: Lactobacillus Rhamnosus GG (Probiotic) Cap PO SCH (21:50)
[2023-02-08] MEDS ORDERED: Sodium Chloride 0.9% 500 ML IV ONE (00:06)
[2023-02-08] MEDS: Enoxaparin 40 MG/0.4 ML Syringe SUBCUT SCH (00:18)
[2023-02-08] MEDS: Sodium Chloride 0.9% 1,000 ML IV SCH ×3 (03:55→20:55)
[2023-02-08] MEDS: Insulin Lispro 100 Unit/ML 3 ML KwikPen SUBCUT SCH ×4 (08:04→21:03)
[2023-02-08] MEDS: Pantoprazole 40 MG Tab.CR PO SCH (08:56)
[2023-02-08] MEDS: metFORMIN 500 MG Tab PO SCH ×2 (08:56→17:17)
[2023-02-08] MEDS: Lactobacillus Rhamnosus GG (Probiotic) Cap PO SCH ×2 (08:56→20:55)
[2023-02-08] MEDS: Insulin Glargine,Human Rec. Analog 100 Units/ML 3 ML Pen SUBCUT SCH ×2 (08:57→21:04)
[2023-02-08] MEDS: Tamsulosin 0.4 MG Cap.ER PO SCH (10:10)
[2023-02-08] MEDS: Acetaminophen/HYDROcodone 325-5 MG Tab PO PRN ×2 (10:10→17:17)
[2023-02-08] MEDS: Propranolol 80 MG Cap.ER PO SCH (10:34)
[2023-02-08] MEDS: DEUTETRABENAZINE PO SCH ×2 (11:47→20:58)
[2023-02-08] MEDS: cefTRIAXone 2 GM in Sodium Chloride 0.9% 50 ML IV SCH (20:54)
[2023-02-08] MEDS: atorvaSTATin 10 MG Tab PO SCH (20:56)
[2023-02-08] MEDS: Primidone 50 MG Tab PO SCH (20:57)
[2023-02-09] MEDS: Enoxaparin 40 MG/0.4 ML Syringe SUBCUT SCH (02:07)
[2023-02-09] MEDS: Insulin Lispro 100 Unit/ML 3 ML KwikPen SUBCUT SCH ×4 (07:56→21:25)
[2023-02-09] MEDS: Insulin Glargine,Human Rec. Analog 100 Units/ML 3 ML Pen SUBCUT SCH ×2 (08:43→21:26)
[2023-02-09] MEDS: metFORMIN 500 MG Tab PO SCH (08:45)
[2023-02-09] MEDS: Pantoprazole 40 MG Tab.CR PO SCH (08:45)
[2023-02-09] MEDS: Lactobacillus Rhamnosus GG (Probiotic) Cap PO SCH ×2 (08:45→21:23)
[2023-02-09] MEDS: DEUTETRABENAZINE PO SCH ×2 (08:45→21:24)
[2023-02-09] MEDS: Tamsulosin 0.4 MG Cap.ER PO SCH (08:45)
[2023-02-09] MEDS: Acetaminophen/HYDROcodone 325-5 MG Tab PO PRN ×3 (09:28→21:24)
[2023-02-09] MEDS: Primidone 50 MG Tab PO SCH (21:23)
[2023-02-09] MEDS: atorvaSTATin 10 MG Tab PO SCH (21:23)
[2023-02-09] MEDS: Cefdinir 300 MG Cap PO SCH (21:23)
[2023-02-10] MEDS: Enoxaparin 40 MG/0.4 ML Syringe SUBCUT SCH (00:14)
[2023-02-10] MEDS: Insulin Lispro 100 Unit/ML 3 ML KwikPen SUBCUT SCH (08:31)
[2023-02-10] MEDS: Lactobacillus Rhamnosus GG (Probiotic) Cap PO SCH (08:32)
[2023-02-10] MEDS: Pantoprazole 40 MG Tab.CR PO SCH (08:32)
[2023-02-10] MEDS: Tamsulosin 0.4 MG Cap.ER PO SCH (08:32)
[2023-02-10] MEDS: Insulin Glargine,Human Rec. Analog 100 Units/ML 3 ML Pen SUBCUT SCH (08:33)
[2023-02-10] MEDS: Cefdinir 300 MG Cap PO SCH (08:33)
[2023-02-10] MEDS: DEUTETRABENAZINE PO SCH (08:35)
[2023-02-10] MEDS ORDERED: METFORMIN 500 MG PO SCH (09:00)
[2023-02-10 11:19] VITALS: BP 135/77; PULSE 108
[2023-02-10] MEDS: Propranolol 80 MG Cap.ER PO SCH (11:33)
== END 2023-02-10 11:55 | disposition home or self-care (01) | DRG 698 ==
LOC: JP.ED 20:02 → JP.ICU 23:28
PROVIDERS: ADMIT Hospitalist; ATTEND Internal Medicine
DX: T83.511A Infection and inflammatory reaction due to indwelling urethral catheter, initial encounter (principal); A41.59 Other Gram-negative sepsis; U07.1 COVID-19; R65.20 Severe sepsis without septic shock; N17.9 Acute kidney failure, unspecified; N39.0 Urinary tract infection, site not specified; E11.9 Type 2 diabetes mellitus without complications; N40.0 Benign prostatic hyperplasia without lower urinary tract symptoms; Z96.641 Presence of right artificial hip joint; H91.90 Unspecified hearing loss, unspecified ear; I10 Essential (primary) hypertension; K21.9 Gastro-esophageal reflux disease without esophagitis; M54.9 Dorsalgia, unspecified; G89.29 Other chronic pain; F17.200 Nicotine dependence, unspecified, uncomplicated; N40.1 Benign prostatic hyperplasia with lower urinary tract symptoms; R33.8 Other retention of urine; E78.5 Hyperlipidemia, unspecified; I87.2 Venous insufficiency (chronic) (peripheral); N32.0 Bladder-neck obstruction; E86.0 Dehydration; Y84.6 Urinary catheterization as the cause of abnormal reaction of the patient, or of later complication, without mention of misadventure at the time of the procedure; Z91.030 Bee allergy status; Z90.49 Acquired absence of other specified parts of digestive tract; Z88.5 Allergy status to narcotic agent; Z88.0 Allergy status to penicillin; Z88.8 Allergy status to other drugs, medicaments and biological substances; Z79.4 Long term (current) use of insulin; Z79.899 Other long term (current) drug therapy; Z98.49 Cataract extraction status, unspecified eye
CPT/HCPCS: 36415; 80053; 81001; 83605; 84145; 85025; 86140; 87040 ×2; 87086; 87088; 87186; 96361; 96365; 96366; 99284; 99285; A9270; J0696; J3490 ×2; J7030; U0002; 80048; 82947; 97110-GP; 97161-GP; 97165-GO; 97530-GP; 99223; 99232; 99233; 99238; J1650; J1815; J1815-GY; J7040

== ENCOUNTER 2023-07-12 07:22 | Inpatient (IN) | payer MEDICARE, BC ==
[2023-07-12] MEDS ORDERED: fentaNYL 100 MCG/2 ML SDV ONE (07:29)
[2023-07-12] MEDS ORDERED: Propofol 200 MG/20 ML SDV ONE (07:29)
[2023-07-12] MEDS ORDERED: Midazolam 1 MG/ML 2 ML SDV ONE (07:29)
[2023-07-12 08:12] LABS: HEMATOCRIT 38.6 % (38.4-49.7); HEMOGLOBIN 13.8 g/dL (12.9-16.9); MEAN CORPUSCULAR HEMOGLOBIN 31.1 pg (31.6-35.5); MEAN CORPUSCULAR HGB CONC 35.8 g/dL (31.6-35.5); MEAN CORPUSCULAR VOLUME 86.9 fL (81.4-99.0); RED BLOOD CELL COUNT 4.44 M/uL (4.14-5.76); WHITE BLOOD CELL COUNT,WBC 8.1 K/uL (3.2-11.0)
[2023-07-12] MEDS ORDERED: Nozin Nasal Sanitizer NASBOTH SCH (08:30)
[2023-07-12] MEDS ORDERED: Lactated Ringers 1,000 ML IV SCH (08:30)
[2023-07-12 08:33] LABS: ALANINE AMINOTRANSFERASE,ALT 48 U/L (12-78); ALBUMIN 3.5 g/dL (3.4-5.0); ALKALINE PHOSPHATASE 93 U/L (46-116); ASPARTATE AMNIOTRANSFERASE,AST 29 U/L (15-37); BILIRUBIN TOTAL 0.8 mg/dL (0.2-1.0); BLOOD UREA NITROGEN,BUN 19 mg/dL (7-18); CALCIUM 8.8 mg/dL (8.5-10.1); CARBON DIOXIDE,CO2 26 mmol/L (21-32); CHLORIDE,CL 101 mmol/L (100-108); CREATININE 1.1 mg/dL (0.8-1.3); EST CRCL DRUG DOSING (CG) 78.91 mL/min; ESTIMATED GFR 73 mL/min (>60); GLUCOSE RANDOM 218 mg/dL (74-106); POTASSIUM,K 3.6 mmol/L (3.6-5.2); PROTEIN TOTAL,TP 7.2 g/dL (6.4-8.2); SODIUM,NA 136 mmol/L (140-148)
[2023-07-12 08:36] LABS: ANION GAP 12.6 mmol/L (5.0-14.0)
[2023-07-12] MEDS ORDERED: Dexamethasone 4 MG/ML SDV ONE (09:02)
[2023-07-12] MEDS ORDERED: Glycopyrrolate 0.2 MG/ML 5 ML MDV ONE (09:02)
[2023-07-12] MEDS ORDERED: Ondansetron 4 MG/2 ML SDV ONE (09:02)
[2023-07-12] MEDS ORDERED: Succinylcholine 200 MG/10 ML MDV ONE (09:02)
[2023-07-12] MEDS ORDERED: Rocuronium 50 MG/5 ML Vial ONE (09:02)
[2023-07-12] MEDS ORDERED: Neostigmine Methylsulfate 10 MG/10 ML MDV ONE (09:02)
[2023-07-12] MEDS ORDERED: fentaNYL 250 MCG/5 ML SDV ONE (09:03)
[2023-07-12] MEDS ORDERED: ceFAZolin 2 GM in Sodium Chloride 0.9% 100 ML IV ONE (09:15)
[2023-07-12] MEDS ORDERED: ceFAZolin 2 GM in Premix Bag 1 BAG IV ONE (09:15)
[2023-07-12] MEDS ORDERED: Phenylephrine 1% 10 MG/ML SDV ONE (09:43)
[2023-07-12] MEDS ORDERED: Sodium Chloride 0.9% 10 ML ONE (09:43)
[2023-07-12] MEDS ORDERED: traMADol 50 MG Tab PO PRN (11:14)
[2023-07-12] MEDS ORDERED: Magnesium Hydroxide 400 MG/5 ML Susp 30 ML Cup PO PRN (11:15)
[2023-07-12] MEDS ORDERED: Docusate Sodium 100 MG Cap PO PRN (11:15)
[2023-07-12] MEDS ORDERED: Sodium Chloride 0.9% 1,000 ML IV SCH (11:15)
[2023-07-12] MEDS ORDERED: Acetaminophen 325 MG Tab PO SCH (11:15)
[2023-07-12] MEDS ORDERED: Meclizine 25 MG Tab PO PRN (11:21)
[2023-07-12] MEDS ORDERED: Ondansetron 4 MG Tab.DIS PO PRN (11:21)
[2023-07-12] MEDS ORDERED: Famotidine 20 MG Tab PO PRN (11:21)
[2023-07-12] MEDS ORDERED: Glucagon,Human Recombinant 1 MG Vial IM PRN (11:21)
[2023-07-12] MEDS ORDERED: 50% Dextrose in Water 50 ML Syringe IVPUSH PRN (11:21)
[2023-07-12] MEDS ORDERED: EPINEPHrine 1 MG/ML SDV IM PRN (12:07)
[2023-07-12] MEDS ORDERED: Albuterol 6.7 GM Inhaler INH PRN (12:10)
[2023-07-12] MEDS: Insulin Lispro 100 Unit/ML 3 ML KwikPen SUBCUT SCH ×2 (12:40→16:52)
[2023-07-12] MEDS: Acetaminophen 325 MG Tab PO SCH ×2 (12:40→18:34)
[2023-07-12] MEDS: ceFAZolin 2 GM in Premix Bag 1 BAG IV SCH ×2 (15:34→23:01)
[2023-07-12] MEDS ORDERED: Naloxone 0.4 MG/ML SDV IVPUSH PRN (18:18)
[2023-07-12] MEDS ORDERED: HYDROmorphone 0.5 MG/0.5 ML Syringe IVPUSH PRN (18:18)
[2023-07-12] MEDS: Acetaminophen/HYDROcodone 325-5 MG Tab PO PRN ×2 (18:27→22:58)
[2023-07-12] MEDS: Nozin Nasal Sanitizer NASBOTH SCH (20:14)
[2023-07-12] MEDS: Propranolol 40 MG Tab PO SCH (20:18)
[2023-07-12] MEDS: DEUTETRABENAZINE 9 MG PO SCH (20:18)
[2023-07-12] MEDS: Insulin Glargine,Human Rec. Analog 100 Units/ML 3 ML Pen SUBCUT SCH (20:20)
[2023-07-12] MEDS ORDERED: DEUTETRABENAZINE 9 MG PO SCH (21:00)
[2023-07-13] MEDS: Acetaminophen 325 MG Tab PO SCH ×4 (02:14→19:19)
[2023-07-13] MEDS: Acetaminophen/HYDROcodone 325-5 MG Tab PO PRN ×5 (03:19→21:37)
[2023-07-13 04:54] LABS: HEMATOCRIT 32.8 % (38.4-49.7); HEMOGLOBIN 11.5 g/dL (12.9-16.9); MEAN CORPUSCULAR HGB CONC 35.1 g/dL (31.6-35.5); MEAN CORPUSCULAR VOLUME 88.4 fL (81.4-99.0); RED BLOOD CELL COUNT 3.71 M/uL (4.14-5.76); WHITE BLOOD CELL COUNT,WBC 8.3 K/uL (3.2-11.0)
[2023-07-13] MEDS: ceFAZolin 2 GM in Premix Bag 1 BAG IV SCH (07:35)
[2023-07-13] MEDS: metFORMIN 500 MG Tab PO SCH (07:35)
[2023-07-13] MEDS: Insulin Lispro 100 Unit/ML 3 ML KwikPen SUBCUT SCH ×3 (07:37→16:33)
[2023-07-13] MEDS ORDERED: MECOBALAMIN 1000 MCG PO SCH (09:00)
[2023-07-13] MEDS ORDERED: B12 PO SCH (09:00)
[2023-07-13] MEDS ORDERED: B6 PO SCH (09:00)
[2023-07-13] MEDS ORDERED: [UNRECOGNIZED DRUG - OTHER] PO SCH (09:00)
[2023-07-13] MEDS: Nozin Nasal Sanitizer NASBOTH SCH ×2 (09:10→21:32)
[2023-07-13] MEDS: Aspirin 325 MG Tab.EC PO SCH (09:10)
[2023-07-13] MEDS: Losartan 25 MG Tab PO SCH (09:11)
[2023-07-13] MEDS: Propranolol 40 MG Tab PO SCH ×2 (09:11→21:33)
[2023-07-13] MEDS: DEUTETRABENAZINE 9 MG PO SCH ×2 (09:11→21:32)
[2023-07-13] MEDS: Hydrochlorothiazide/Triamterene 25-37.5 Tab PO SCH (09:12)
[2023-07-13] MEDS: Finasteride 5 MG Tab PO SCH (09:12)
[2023-07-13] MEDS: Cholecalciferol (Vitamin D3) 25 MCG Tab PO SCH (09:12)
[2023-07-13] MEDS: Insulin Glargine,Human Rec. Analog 100 Units/ML 3 ML Pen SUBCUT SCH ×2 (09:15→21:29)
[2023-07-14] MEDS: Acetaminophen 325 MG Tab PO SCH ×4 (00:45→19:37)
[2023-07-14] MEDS: metFORMIN 500 MG Tab PO SCH (07:32)
[2023-07-14] MEDS: Insulin Lispro 100 Unit/ML 3 ML KwikPen SUBCUT SCH ×3 (07:32→16:56)
[2023-07-14] MEDS: DEUTETRABENAZINE 9 MG PO SCH ×3 (08:35→21:26)
[2023-07-14] MEDS: Losartan 25 MG Tab PO SCH (08:35)
[2023-07-14] MEDS: Nozin Nasal Sanitizer NASBOTH SCH ×3 (08:35→21:25)
[2023-07-14] MEDS: Propranolol 40 MG Tab PO SCH ×3 (08:36→21:26)
[2023-07-14] MEDS: Finasteride 5 MG Tab PO SCH (08:36)
[2023-07-14] MEDS: Cholecalciferol (Vitamin D3) 25 MCG Tab PO SCH (08:36)
[2023-07-14] MEDS: Aspirin 325 MG Tab.EC PO SCH (08:36)
[2023-07-14] MEDS: Hydrochlorothiazide/Triamterene 25-37.5 Tab PO SCH (08:36)
[2023-07-14] MEDS: Insulin Glargine,Human Rec. Analog 100 Units/ML 3 ML Pen SUBCUT SCH ×3 (08:40→21:26)
[2023-07-14] MEDS ORDERED: DULAGLUTIDE 3 MG/0.5 ML SQ SCH (09:00)
[2023-07-14] MEDS ORDERED: TRULICITY 4.5 MG/0.5 ML SQ SCH (09:00)
[2023-07-14] MEDS: Acetaminophen/HYDROcodone 325-5 MG Tab PO PRN ×2 (10:08→17:30)
[2023-07-15] MEDS: Acetaminophen 325 MG Tab PO SCH ×2 (01:09→08:22)
[2023-07-15 05:58] VITALS: BP 131/79; PULSE 90
[2023-07-15] MEDS: metFORMIN 500 MG Tab PO SCH (07:37)
[2023-07-15] MEDS: Insulin Lispro 100 Unit/ML 3 ML KwikPen SUBCUT SCH ×2 (07:38→11:18)
[2023-07-15] MEDS: Acetaminophen/HYDROcodone 325-5 MG Tab PO PRN (07:42)
[2023-07-15] MEDS: Nozin Nasal Sanitizer NASBOTH SCH (08:22)
[2023-07-15] MEDS: Aspirin 325 MG Tab.EC PO SCH (08:22)
[2023-07-15] MEDS: Propranolol 40 MG Tab PO SCH (08:22)
[2023-07-15] MEDS: Hydrochlorothiazide/Triamterene 25-37.5 Tab PO SCH (08:24)
[2023-07-15] MEDS: Finasteride 5 MG Tab PO SCH (08:24)
[2023-07-15] MEDS: Losartan 25 MG Tab PO SCH (08:24)
[2023-07-15] MEDS: Cholecalciferol (Vitamin D3) 25 MCG Tab PO SCH (08:24)
[2023-07-15] MEDS: DEUTETRABENAZINE 9 MG PO SCH (08:25)
[2023-07-15] MEDS: Insulin Glargine,Human Rec. Analog 100 Units/ML 3 ML Pen SUBCUT SCH (08:25)
== END 2023-07-15 12:45 | disposition home or self-care (01) | DRG 502 ==
LOC: JP.SDS 07:22 → JP.MS 11:15 → JP.SDS 07-13 12:23 → JP.MS 07-13 12:23
PROVIDERS: ADMIT Specialist; ATTEND Specialist
PROC: 0LQJ0ZZ Repair Right Hip Tendon, Open Approach (ICD-10-PCS; 2023-07-12)
PROC: 0LBJ0ZZ Excision of Right Hip Tendon, Open Approach (ICD-10-PCS; principal; 2023-07-12 09:00)
DX: M67.853 Other specified disorders of tendon, right hip (principal); I10 Essential (primary) hypertension; Z96.641 Presence of right artificial hip joint; K21.9 Gastro-esophageal reflux disease without esophagitis; N40.0 Benign prostatic hyperplasia without lower urinary tract symptoms; E66.9 Obesity, unspecified; E11.9 Type 2 diabetes mellitus without complications; Z68.30 Body mass index [BMI] 30.0-30.9, adult; Z79.84 Long term (current) use of oral hypoglycemic drugs; Z79.4 Long term (current) use of insulin; Z79.899 Other long term (current) drug therapy; Z79.82 Long term (current) use of aspirin; Z88.5 Allergy status to narcotic agent; Z88.0 Allergy status to penicillin; Z88.8 Allergy status to other drugs, medicaments and biological substances
CPT/HCPCS: 36415; 80053; 85027; 97110-GP; 97116-GP; 97162-GP; 97530-GP; A9270-GY; J0330; J0690; J1100; J1815; J1815-GY; J2250; J2371; J2405; J2704; J2710; J3010; J3490; J7120

== ENCOUNTER 2023-08-28 21:23 | Emergency (ER) | payer MEDICARE, BC ==
[2023-08-28 21:39] VITALS: BP 144/81; PULSE 101
[2023-08-28 23:01] LABS: BASOPHILS ABSOLUTE AUTO 0.06 K/uL (0.00-0.10); BASOPHILS PERCENT AUTO 0.8 % (0.1-1.3); EOSINOPHILS PERCENT AUTO 3.9 % (0.0-5.4); HEMATOCRIT 35.9 % (38.4-49.7); HEMOGLOBIN 13.1 g/dL (12.9-16.9); IMMATURE GRAN PERCENT AUTO 0.3 % (0.0-0.7); LYMPHOCYTES ABSOLUTE AUTO 2.24 K/uL (0.8-3.3); LYMPHOCYTES PERCENT AUTO 28.9 % (11.4-47.7); MEAN CORPUSCULAR HEMOGLOBIN 31.3 pg (31.6-35.5); MEAN CORPUSCULAR HGB CONC 36.5 g/dL (31.6-35.5); MEAN CORPUSCULAR VOLUME 85.7 fL (81.4-99.0); MONOCYTES ABSOLUTE AUTO 0.88 K/uL (0.20-0.90); MONOCYTES PERCENT AUTO 11.3 % (3.3-12.6); NEUTROPHILS ABSOLUTE AUTO 4.26 K/uL (1.0-7.6); NEUTROPHILS PERCENT AUTO 54.8 % (40.0-78.1); PLATELET COUNT,PLT 152 K/uL (130-375); RED BLOOD CELL COUNT 4.19 M/uL (4.14-5.76); WHITE BLOOD CELL COUNT,WBC 7.8 K/uL (3.2-11.0)
[2023-08-28 23:05] LABS: IMMATURE GRAN ABSOLUTE AUTO 0.02 K/uL (0.00-0.23)
[2023-08-28 23:09] LABS: APPEARANCE,URINE CLEAR (CLEAR); BACTERIA,URINE RARE; BILIRUBIN,URINE NEGATIVE (NEGATIVE); COLOR,URINE YELLOW (YELLOW); EPITHELIAL CELLS,URINE NOT SEEN; GLUCOSE,URINE 500 mg/dL (NEGATIVE); KETONES,URINE NEGATIVE (NEGATIVE); LEUKOCYTE ESTERASE,URINE NEGATIVE (NEGATIVE); NITRITE,URINE NEGATIVE (NEGATIVE); OCCULT BLOOD,URINE NEGATIVE (NEGATIVE); PROTEIN,URINE NEGATIVE (NEGATIVE); RBC,URINE 0-5 (0-5); UROBILINOGEN,URINE 0.2 EU/dL (0.2-1.0); WBC,URINE 0-5 (0-5)
[2023-08-28 23:10] LABS: AMORPHOUS SEDIMENT,URINE NOT SEEN; MUCUS,URINE NOT SEEN
[2023-08-28 23:16] LABS: ANION GAP 12.5 mmol/L (5.0-14.0); CALCIUM 9.7 mg/dL (8.5-10.1); CREATININE 1.1 mg/dL (0.8-1.3); EST CRCL DRUG DOSING (CG) 78.91 mL/min; POTASSIUM,K 3.5 mmol/L (3.6-5.2)
[2023-08-28 23:41] LABS: CORONAVIRUS COVID-19 NAA NEGATIVE (NEGATIVE); INFLUENZA A NAA NEGATIVE (NEGATIVE); INFLUENZA B NAA NEGATIVE (NEGATIVE); RESPIRATORY SYNCYTIAL VIR NAA NEGATIVE (NEGATIVE)
== END 2023-08-29 00:05 | disposition home or self-care (01) ==
LOC: JP.ED 21:23
DX: E11.65 Type 2 diabetes mellitus with hyperglycemia (principal); I10 Essential (primary) hypertension; K21.9 Gastro-esophageal reflux disease without esophagitis; F17.210 Nicotine dependence, cigarettes, uncomplicated; Z91.048 Other nonmedicinal substance allergy status; Z88.8 Allergy status to other drugs, medicaments and biological substances; Z88.5 Allergy status to narcotic agent; Z88.0 Allergy status to penicillin; Z86.16 Personal history of COVID-19; Z79.4 Long term (current) use of insulin; Z79.899 Other long term (current) drug therapy; Z79.82 Long term (current) use of aspirin; Z91.030 Bee allergy status; Z79.84 Long term (current) use of oral hypoglycemic drugs
CPT/HCPCS: 0241U; 36415; 80048; 81001; 85025; 99283

== ENCOUNTER 2024-02-23 21:23 | Emergency (ER) | payer MEDICARE, BC ==
[2024-02-23 22:44] VITALS: BP 123/78; PULSE 83
[2024-02-23] MEDS: diphenhydrAMINE 50 MG/ML SDV IM ONE (23:53)
== END 2024-02-24 00:43 | disposition home or self-care (01) ==
LOC: JP.ED 21:23
DX: T78.40XA Allergy, unspecified, initial encounter (principal); I10 Essential (primary) hypertension; F17.210 Nicotine dependence, cigarettes, uncomplicated; Z88.0 Allergy status to penicillin; Z88.5 Allergy status to narcotic agent; Z91.030 Bee allergy status; Z88.8 Allergy status to other drugs, medicaments and biological substances; Z79.82 Long term (current) use of aspirin; Z79.84 Long term (current) use of oral hypoglycemic drugs; Z79.899 Other long term (current) drug therapy; Z86.16 Personal history of COVID-19; Z90.49 Acquired absence of other specified parts of digestive tract
CPT/HCPCS: 96372; 99283; J1200

== ENCOUNTER 2024-03-08 07:37 | Observation (INO) | payer MEDICARE, BC ==
[2024-03-08] MEDS: Lactated Ringers 1,000 ML IV SCH (08:10)
[2024-03-08 08:12] LABS: HEMATOCRIT 37.6 % (38.4-49.7); HEMOGLOBIN 13.9 g/dL (12.9-16.9); MEAN CORPUSCULAR HEMOGLOBIN 31.9 pg (31.6-35.5); MEAN CORPUSCULAR VOLUME 86.2 fL (81.4-99.0); RED BLOOD CELL COUNT 4.36 M/uL (4.14-5.76); WHITE BLOOD CELL COUNT,WBC 8.7 K/uL (3.2-11.0)
[2024-03-08 08:33] LABS: ALANINE AMINOTRANSFERASE,ALT 36 U/L (12-78); ALBUMIN 3.4 g/dL (3.4-5.0); ALKALINE PHOSPHATASE 74 U/L (46-116); ANION GAP 14.4 mmol/L (5.0-14.0); ASPARTATE AMNIOTRANSFERASE,AST 25 U/L (15-37); BILIRUBIN TOTAL 0.9 mg/dL (0.2-1.0); BLOOD UREA NITROGEN,BUN 19 mg/dL (7-18); CALCIUM 9.6 mg/dL (8.5-10.1); CARBON DIOXIDE,CO2 24 mmol/L (21-32); CHLORIDE,CL 102 mmol/L (100-108); CREATININE 1.2 mg/dL (0.8-1.3); EST CRCL DRUG DOSING (CG) 70.38 mL/min; ESTIMATED GFR 65 mL/min (>60); GLUCOSE RANDOM 188 mg/dL (74-106); POTASSIUM,K 3.4 mmol/L (3.6-5.2); PROTEIN TOTAL,TP 6.7 g/dL (6.4-8.2); SODIUM,NA 137 mmol/L (140-148)
[2024-03-08] MEDS: Nozin Nasal Sanitizer NASBOTH SCH ×2 (09:05→20:08)
[2024-03-08] MEDS ORDERED: Propofol 200 MG/20 ML SDV ONE ×2 (09:23→09:46)
[2024-03-08] MEDS ORDERED: Midazolam 1 MG/ML 2 ML SDV ONE (09:24)
[2024-03-08] MEDS ORDERED: fentaNYL 100 MCG/2 ML SDV ONE ×2 (09:24→10:10)
[2024-03-08] MEDS: ceFAZolin 2 GM in Premix Bag 1 BAG IV ONE (09:45)
[2024-03-08] MEDS ORDERED: Lactated Ringers 1,000 ML ONE (10:03)
[2024-03-08] MEDS: Bupivacaine 0.5% 30 ML SDV ONE (10:08)
[2024-03-08] MEDS ORDERED: Docusate Sodium 100 MG Cap PO PRN (11:16)
[2024-03-08] MEDS ORDERED: Ondansetron 4 MG/2 ML SDV IVPUSH PRN (11:16)
[2024-03-08] MEDS ORDERED: Ketorolac 15 MG/ML SDV IVPUSH PRN (11:16)
[2024-03-08] MEDS ORDERED: Bismuth Subsalicylate 262 MG/15 ML Susp 236 ML Bottle PO PRN (11:19)
[2024-03-08] MEDS ORDERED: Meclizine 25 MG Tab PO PRN (11:19)
[2024-03-08] MEDS ORDERED: Glucagon,Human Recombinant 1 MG Vial IM PRN (11:19)
[2024-03-08] MEDS ORDERED: 50% Dextrose in Water 50 ML Syringe IVPUSH PRN (11:19)
[2024-03-08] MEDS ORDERED: EPINEPHrine 1 MG/ML SDV IM PRN (11:26)
[2024-03-08] MEDS ORDERED: Albuterol 6.7 GM Inhaler INH PRN (11:31)
[2024-03-08] MEDS: Sodium Chloride 0.9% 1,000 ML IV SCH (12:01)
[2024-03-08] MEDS: Acetaminophen 325 MG Tab PO SCH (14:02)
[2024-03-08] MEDS: AUSTEDO 9 MG PO SCH (14:03)
[2024-03-08] MEDS: INSULIN LISPRO 100 UNIT/ML SUBCUT SCH (14:04)
[2024-03-08] MEDS: ceFAZolin 2 GM in Premix Bag 1 BAG IV SCH (17:04)
[2024-03-08] MEDS: Acetaminophen/HYDROcodone 325-5 MG Tab PO PRN (18:01)
[2024-03-08] MEDS: PROPRANOLOL 80 MG PO SCH (20:09)
[2024-03-08] MEDS: INSULIN GLARGINE 100 UNIT/ML SUBCUT SCH (20:10)
[2024-03-09 05:48] LABS: HEMATOCRIT 32.4 % (38.4-49.7); HEMOGLOBIN 11.9 g/dL (12.9-16.9); MEAN CORPUSCULAR HEMOGLOBIN 32.1 pg (31.6-35.5); MEAN CORPUSCULAR HGB CONC 36.7 g/dL (31.6-35.5); MEAN CORPUSCULAR VOLUME 87.3 fL (81.4-99.0); RED BLOOD CELL COUNT 3.71 M/uL (4.14-5.76); WHITE BLOOD CELL COUNT,WBC 7.6 K/uL (3.2-11.0)
[2024-03-09] MEDS: Vitamin B6-pyridOXINE 50 MG Tab PO SCH (08:19)
[2024-03-09] MEDS: Losartan 25 MG **PTOM PO SCH (08:20)
[2024-03-09] MEDS: Cholecalciferol (Vitamin D3) 25 MCG Tab PO SCH (08:20)
[2024-03-09] MEDS: Aspirin 81 MG Tab.EC PO SCH (08:20)
[2024-03-09] MEDS: Cyanocobalamin (Vitamin B12) 1,000 MCG Tab PO SCH (08:20)
[2024-03-09] MEDS: METFORMIN 500 MG PO SCH (08:20)
[2024-03-09] MEDS: FAMOTIDINE 20 MG PO SCH (08:20)
[2024-03-09] MEDS: Tamsulosin 0.4 MG Cap.ER **PTOM PO SCH (08:21)
[2024-03-09] MEDS: HYDROCHLOROTHIAZIDE PO SCH (08:21)
[2024-03-09] MEDS: TRIAMTERENE PO SCH (08:21)
[2024-03-09] MEDS: Finasteride 5 MG **PTOM PO SCH (08:21)
[2024-03-09] MEDS ORDERED: Non-Formulary Medication 1 Each (Dulaglutide [Trulicity] 4.5 MG/0.5 ML Pen.Injctr) SQ SCH (09:00)
[2024-03-09] MEDS ORDERED: DEUTETRABENAZINE 9 MG PO SCH (09:00)
[2024-03-09] MEDS ORDERED: atorvaSTATin 10 MG Tab PO SCH (09:00)
[2024-03-09] MEDS ORDERED: MECOBALAMIN 1000 MCG PO SCH (09:00)
[2024-03-09] MEDS: atorvaSTATin 10 MG Tab PO SCH (11:21)
[2024-03-10 06:17] VITALS: PULSE 78
[2024-03-10 11:23] VITALS: BP 130/78
[2024-03-14] MEDS ORDERED: DULAGLUTIDE 4.5 MG SUBCUT SCH (09:00)
== END 2024-03-10 13:31 | disposition home or self-care (01) ==
LOC: JP.SDS 07:37 → JP.MS 11:17 → JP.SDS 03-09 12:55
PROVIDERS: ADMIT Specialist; ATTEND Physician Assistant
DX: G57.11 Meralgia paresthetica, right lower limb (principal); M70.61 Trochanteric bursitis, right hip; M76.31 Iliotibial band syndrome, right leg; M61.58 Other ossification of muscle, other site; I10 Essential (primary) hypertension; E11.9 Type 2 diabetes mellitus without complications; J44.9 Chronic obstructive pulmonary disease, unspecified; K21.9 Gastro-esophageal reflux disease without esophagitis; F17.210 Nicotine dependence, cigarettes, uncomplicated
CPT/HCPCS: 00300; 27299; 36415; 64722; 80053; 85027; 97110; 97162; 97530; A9270; J0665; J0690; J1815; J2250; J2704; J3010; J7030; J7120

== ENCOUNTER 2024-06-12 07:16 | Inpatient (IN) | payer MEDICARE, BC ==
[~2024-06-12 07:16] MED LIST changes: +Bupivacaine 0.5% 50 ML MDV ONE; -Midazolam 1 MG/ML 2 ML SDV ONE; -Propofol 200 MG/20 ML SDV ONE; -fentaNYL 100 MCG/2 ML SDV ONE
[2024-06-12] MEDS ORDERED: fentaNYL 100 MCG/2 ML SDV ONE ×2 (07:18→12:08)
[2024-06-12] MEDS ORDERED: Midazolam 1 MG/ML 2 ML SDV ONE (07:18)
[2024-06-12] MEDS ORDERED: Propofol 200 MG/20 ML SDV ONE ×4 (07:18→12:01)
[2024-06-12 08:41] LABS: HEMATOCRIT 36.7 % (38.4-49.7); HEMOGLOBIN 13.2 g/dL (12.9-16.9); MEAN CORPUSCULAR HEMOGLOBIN 31.9 pg (31.6-35.5); MEAN CORPUSCULAR VOLUME 88.6 fL (81.4-99.0); RED BLOOD CELL COUNT 4.14 M/uL (4.14-5.76); WHITE BLOOD CELL COUNT,WBC 7.2 K/uL (3.2-11.0)
[2024-06-12] MEDS: Lactated Ringers 1,000 ML IV SCH (08:46)
[2024-06-12] MEDS: Nozin Nasal Sanitizer NASBOTH SCH ×2 (08:46→20:17)
[2024-06-12 09:03] LABS: ALANINE AMINOTRANSFERASE,ALT 38 U/L (12-78); ALBUMIN 3.4 g/dL (3.4-5.0); ALKALINE PHOSPHATASE 93 U/L (46-116); ASPARTATE AMNIOTRANSFERASE,AST 29 U/L (15-37); BILIRUBIN TOTAL 0.9 mg/dL (0.2-1.0); BLOOD UREA NITROGEN,BUN 18 mg/dL (7-18); CALCIUM 10.2 mg/dL (8.5-10.1); CARBON DIOXIDE,CO2 26 mmol/L (21-32); CHLORIDE,CL 105 mmol/L (100-108); CREATININE 1.3 mg/dL (0.8-1.3); EST CRCL DRUG DOSING (CG) 65.84 mL/min; ESTIMATED GFR 59 mL/min (>60); GLUCOSE RANDOM 239 mg/dL (74-106); POTASSIUM,K 3.7 mmol/L (3.6-5.2); PROTEIN TOTAL,TP 6.9 g/dL (6.4-8.2); SODIUM,NA 140 mmol/L (140-148)
[2024-06-12] MEDS ORDERED: Phenylephrine 1% 10 MG/ML SDV ONE (10:55)
[2024-06-12] MEDS ORDERED: Sodium Chloride 0.9% 10 ML ONE (10:55)
[2024-06-12] MEDS ORDERED: Lactated Ringers 1,000 ML ONE (11:30)
[2024-06-12] MEDS ORDERED: Ondansetron 4 MG/2 ML SDV IVPUSH PRN (12:50)
[2024-06-12] MEDS ORDERED: Docusate Sodium 100 MG Cap PO PRN (12:50)
[2024-06-12] MEDS ORDERED: Glucagon,Human Recombinant 1 MG Vial IM PRN (12:53)
[2024-06-12] MEDS ORDERED: Bismuth Subsalicylate 262 MG/15 ML Susp 236 ML Bottle PO PRN (12:53)
[2024-06-12] MEDS ORDERED: Meclizine 25 MG Tab PO PRN (12:53)
[2024-06-12] MEDS ORDERED: 50% Dextrose in Water 50 ML Syringe IVPUSH PRN (12:53)
[2024-06-12] MEDS ORDERED: EPINEPHrine 1 MG/ML SDV IM PRN (13:12)
[2024-06-12] MEDS ORDERED: Albuterol 6.7 GM Inhaler INH PRN (13:31)
[2024-06-12] MEDS: Tranexamic Acid 1,000 MG in Sodium Chloride 0.9% 50 ML IV ONE (14:23)
[2024-06-12] MEDS: ceFAZolin 2 GM in Premix Bag 1 BAG IV ONE (14:27)
[2024-06-12] MEDS: Acetaminophen 325 MG Tab PO SCH (15:39)
[2024-06-12] MEDS: Insulin Lispro 100 Unit/ML 3 ML KwikPen SUBCUT SCH (16:47)
[2024-06-12] MEDS: AUSTEDO 9 MG PO SCH (16:53)
[2024-06-12] MEDS: ceFAZolin 2 GM in Premix Bag 1 BAG IV SCH (16:54)
[2024-06-12] MEDS: Sodium Chloride 0.9% 1,000 ML IV SCH (18:07)
[2024-06-12] MEDS: Acetaminophen/HYDROcodone 325-10 MG Tab PO PRN (18:20)
[2024-06-12] MEDS: Ketorolac 15 MG/ML SDV IVPUSH PRN (20:14)
[2024-06-12] MEDS: PROPRANOLOL 80 MG PO SCH (20:18)
[2024-06-12] MEDS: Insulin Glargine,Human Rec. Analog 100 Units/ML 3 ML Pen SUBCUT SCH (20:20)
[2024-06-13 05:57] LABS: HEMATOCRIT 29.8 % (38.4-49.7); HEMOGLOBIN 10.8 g/dL (12.9-16.9); MEAN CORPUSCULAR HEMOGLOBIN 32.5 pg (31.6-35.5); MEAN CORPUSCULAR HGB CONC 36.2 g/dL (31.6-35.5); MEAN CORPUSCULAR VOLUME 89.8 fL (81.4-99.0); RED BLOOD CELL COUNT 3.32 M/uL (4.14-5.76); WHITE BLOOD CELL COUNT,WBC 7.3 K/uL (3.2-11.0)
[2024-06-13] MEDS: TRULICITY 4.5 MG/0.5 ML SUBCUT SCH (07:40)
[2024-06-13] MEDS: METFORMIN 500 MG PO SCH (07:45)
[2024-06-13] MEDS ORDERED: metFORMIN 500 MG Tab PO SCH (09:00)
[2024-06-13] MEDS: Losartan 25 MG **PTOM PO SCH (09:48)
[2024-06-13] MEDS: Tamsulosin 0.4 MG Cap.ER **PTOM PO SCH (09:49)
[2024-06-13] MEDS: Aspirin 325 MG Tab.EC PO SCH (09:49)
[2024-06-13] MEDS: TRIAMTERENE PO SCH (09:50)
[2024-06-13] MEDS: FAMOTIDINE 20 MG PO SCH (09:50)
[2024-06-13] MEDS: HYDROCHLOROTHIAZIDE PO SCH (09:50)
[2024-06-13] MEDS: Finasteride 5 MG **PTOM PO SCH (09:51)
[2024-06-13] MEDS: Vitamin B6-pyridOXINE 50 MG Tab PO SCH (09:52)
[2024-06-13] MEDS: Cyanocobalamin (Vitamin B12) 1,000 MCG Tab PO SCH (09:52)
[2024-06-13] MEDS: Acetaminophen/HYDROcodone 325-5 MG Tab PO PRN (09:53)
[2024-06-13] MEDS: Celecoxib 200 MG Cap PO SCH (10:06)
[2024-06-14] MEDS ORDERED: Insulin Glargine,Human Rec. Analog 100 Units/ML 3 ML Pen ONE (22:25)
[2024-06-15 05:46] VITALS: BP 104/54; PULSE 87
== END 2024-06-15 09:45 | disposition home or self-care (01) | DRG 482 ==
LOC: JP.SDS 07:16 → JP.2SS 12:50 → JP.SDS 06-13 15:28 → JP.2SS 06-13 15:29
PROVIDERS: ADMIT Specialist; ATTEND Specialist
PROC: 0JNL0ZZ Release Right Upper Leg Subcutaneous Tissue and Fascia, Open Approach (ICD-10-PCS; 2024-06-12)
PROC: 0SN90ZZ Release Right Hip Joint, Open Approach (ICD-10-PCS; principal; 2024-06-12 09:15)
DX: T84.84XA Pain due to internal orthopedic prosthetic devices, implants and grafts, initial encounter (principal); E11.9 Type 2 diabetes mellitus without complications; I10 Essential (primary) hypertension; K21.9 Gastro-esophageal reflux disease without esophagitis; J44.9 Chronic obstructive pulmonary disease, unspecified; F17.200 Nicotine dependence, unspecified, uncomplicated; E78.5 Hyperlipidemia, unspecified; I87.2 Venous insufficiency (chronic) (peripheral); Z88.0 Allergy status to penicillin; Z88.8 Allergy status to other drugs, medicaments and biological substances; Z88.5 Allergy status to narcotic agent; Y83.1 Surgical operation with implant of artificial internal device as the cause of abnormal reaction of the patient, or of later complication, without mention of misadventure at the time of the procedure
CPT/HCPCS: 01215-QZ; 36415; 80053; 85027; 97110-GP; 97116-GP; 97161-GP; 97165-GO; 97530-GP; A9270-GY; J0665; J0690; J1815; J1815-GY; J1885; J2250; J2371; J2704; J3010; J3490; J7030; J7120

== ENCOUNTER 2024-07-04 09:41 | Emergency (ER) | payer MEDICARE, BC ==
[2024-07-04 09:58] VITALS: BP 132/80; PULSE 96
== END 2024-07-04 10:30 | disposition home or self-care (01) ==
LOC: JP.ED 09:41
DX: L02.214 Cutaneous abscess of groin (principal); I10 Essential (primary) hypertension; E11.9 Type 2 diabetes mellitus without complications; K21.9 Gastro-esophageal reflux disease without esophagitis; Z90.49 Acquired absence of other specified parts of digestive tract; Z79.4 Long term (current) use of insulin; Z79.899 Other long term (current) drug therapy; Z88.8 Allergy status to other drugs, medicaments and biological substances; Z88.0 Allergy status to penicillin; Z88.5 Allergy status to narcotic agent; Z91.030 Bee allergy status
CPT/HCPCS: 99282

== ENCOUNTER 2024-08-11 17:23 | Emergency (ER) | payer MEDICARE, BC ==
[2024-08-11 17:42] VITALS: BP 131/66; PULSE 97
[2024-08-11 18:18] LABS: CORONAVIRUS COVID-19 NAA NEGATIVE (NEGATIVE); INFLUENZA A NAA NEGATIVE (NEGATIVE); INFLUENZA B NAA NEGATIVE (NEGATIVE); RESPIRATORY SYNCYTIAL VIR NAA POSITIVE (NEGATIVE)
[2024-08-11 18:42] LABS: BASOPHILS PERCENT AUTO 0.5 % (0.1-1.3); EOSINOPHILS ABSOLUTE AUTO 0.11 K/uL (0.00-0.40); EOSINOPHILS PERCENT AUTO 2.5 % (0.0-5.4); HEMATOCRIT 34.3 % (38.4-49.7); HEMOGLOBIN 12.6 g/dL (12.9-16.9); LYMPHOCYTES ABSOLUTE AUTO 1.21 K/uL (0.8-3.3); LYMPHOCYTES PERCENT AUTO 27.5 % (11.4-47.7); MEAN CORPUSCULAR HEMOGLOBIN 33.2 pg (31.6-35.5); MEAN CORPUSCULAR HGB CONC 36.7 g/dL (31.6-35.5); MEAN CORPUSCULAR VOLUME 90.5 fL (81.4-99.0); MONOCYTES ABSOLUTE AUTO 0.69 K/uL (0.20-0.90); MONOCYTES PERCENT AUTO 15.7 % (3.3-12.6); NEUTROPHILS ABSOLUTE AUTO 2.37 K/uL (1.0-7.6); NEUTROPHILS PERCENT AUTO 53.8 % (40.0-78.1); PLATELET COUNT,PLT 129 K/uL (130-375); RED BLOOD CELL COUNT 3.79 M/uL (4.14-5.76); WHITE BLOOD CELL COUNT,WBC 4.4 K/uL (3.2-11.0)
[2024-08-11 18:44] LABS: BASOPHILS ABSOLUTE AUTO 0.02 K/uL (0.00-0.10)
[2024-08-11 19:05] LABS: A/G RATIO 0.9 (1.2-2.2); ALANINE AMINOTRANSFERASE,ALT 51 U/L (12-78); ALBUMIN 3.3 g/dL (3.4-5.0); ALKALINE PHOSPHATASE 88 U/L (46-116); ASPARTATE AMNIOTRANSFERASE,AST 50 U/L (15-37); BILIRUBIN TOTAL 1.4 mg/dL (0.2-1.0); BLOOD UREA NITROGEN,BUN 21 mg/dL (7-18); CALCIUM 8.3 mg/dL (8.5-10.1); CARBON DIOXIDE,CO2 26 mmol/L (21-32); CHLORIDE,CL 100 mmol/L (100-108); CREATININE 1.5 mg/dL (0.8-1.3); EST CRCL DRUG DOSING (CG) 57.06 mL/min; ESTIMATED GFR 50 mL/min (>60); GLUCOSE RANDOM 215 mg/dL (74-106); POTASSIUM,K 3.1 mmol/L (3.6-5.2); PROTEIN TOTAL,TP 7.1 g/dL (6.4-8.2); SODIUM,NA 136 mmol/L (140-148)
[2024-08-11 19:07] LABS: ANION GAP 13.1 mmol/L (5.0-14.0)
== END 2024-08-11 19:35 | disposition home or self-care (01) ==
LOC: JP.ED 17:23
DX: J20.5 Acute bronchitis due to respiratory syncytial virus (principal); I10 Essential (primary) hypertension; E11.9 Type 2 diabetes mellitus without complications; F17.210 Nicotine dependence, cigarettes, uncomplicated; Z91.030 Bee allergy status; Z88.8 Allergy status to other drugs, medicaments and biological substances; Z88.5 Allergy status to narcotic agent; Z88.0 Allergy status to penicillin; Z79.84 Long term (current) use of oral hypoglycemic drugs; Z79.899 Other long term (current) drug therapy; Z79.82 Long term (current) use of aspirin; Z79.4 Long term (current) use of insulin
CPT/HCPCS: 0241U; 36415; 71046; 71046-26; 80053; 85025; 99283; 99285

== ENCOUNTER 2025-02-15 06:38 | Day surgery (SDC) | payer MEDICARE, BC ==
[2025-02-15] MEDS ORDERED: Propofol 200 MG/20 ML SDV ONE (07:13)
[2025-02-15] MEDS ORDERED: fentaNYL 50 MCG/ML SDV ONE (07:13)
[2025-02-15] MEDS: Lactated Ringers 1,000 ML IV SCH (07:45)
[2025-02-15 09:56] VITALS: PULSE 82
[2025-02-15 10:06] VITALS: BP 126/84
== END 2025-02-15 10:30 | disposition home or self-care (01) ==
LOC: JP.SDS 06:38
PROVIDERS: ATTEND Surgery
DX: D12.2 Benign neoplasm of ascending colon (principal); D12.3 Benign neoplasm of transverse colon; D12.8 Benign neoplasm of rectum; J44.9 Chronic obstructive pulmonary disease, unspecified; I10 Essential (primary) hypertension; K21.9 Gastro-esophageal reflux disease without esophagitis; Z88.8 Allergy status to other drugs, medicaments and biological substances; Z88.0 Allergy status to penicillin; Z79.899 Other long term (current) drug therapy
CPT/HCPCS: 00811; 45380; 45385; J2704; J3010; J7120; 88305

== ENCOUNTER 2025-06-07 16:45 | Emergency (ER) | payer MEDICARE, BC ==
[2025-06-07 17:07] LABS: BASOPHILS ABSOLUTE AUTO 0.10 K/uL (0.00-0.10); BASOPHILS PERCENT AUTO 0.8 % (0.1-1.3); EOSINOPHILS ABSOLUTE AUTO 0.35 K/uL (0.00-0.40); EOSINOPHILS PERCENT AUTO 2.8 % (0.0-5.4); IMMATURE GRAN ABSOLUTE AUTO 0.05 K/uL (0.00-0.23); IMMATURE GRAN PERCENT AUTO 0.4 % (0.0-0.7); LYMPHOCYTES ABSOLUTE AUTO 2.23 K/uL (0.8-3.3); LYMPHOCYTES PERCENT AUTO 17.9 % (11.4-47.7); MONOCYTES ABSOLUTE AUTO 1.02 K/uL (0.20-0.90); MONOCYTES PERCENT AUTO 8.2 % (3.3-12.6); NEUTROPHILS ABSOLUTE AUTO 8.73 K/uL (1.0-7.6); NEUTROPHILS PERCENT AUTO 69.9 % (40.0-78.1); PLATELET COUNT,PLT 269 K/uL (130-375); RED BLOOD CELL COUNT 4.21 M/uL (4.14-5.76); WHITE BLOOD CELL COUNT,WBC 12.5 K/uL (3.2-11.0)
[2025-06-07 17:28] LABS: A/G RATIO 0.8 (1.2-2.2); ALANINE AMINOTRANSFERASE,ALT 43 U/L (12-78); ASPARTATE AMNIOTRANSFERASE,AST 36 U/L (15-37); BILIRUBIN TOTAL 1.2 mg/dL (0.2-1.0); BLOOD UREA NITROGEN,BUN 22 mg/dL (7-18); CARBON DIOXIDE,CO2 26 mmol/L (21-32); CHLORIDE,CL 104 mmol/L (100-108); CREATININE 1.9 mg/dL (0.8-1.3); EST CRCL DRUG DOSING (CG) 44.42 mL/min; ESTIMATED GFR 37 mL/min (>60); GLUCOSE RANDOM 265 mg/dL (74-106); POTASSIUM,K 3.9 mmol/L (3.6-5.2); PROTEIN TOTAL,TP 7.7 g/dL (6.4-8.2); SODIUM,NA 140 mmol/L (140-148)
[2025-06-07 19:44] LABS: APPEARANCE,URINE CLEAR (CLEAR); GLUCOSE,URINE NEGATIVE (NEGATIVE); OCCULT BLOOD,URINE NEGATIVE (NEGATIVE)
[2025-06-07 19:50] LABS: SQUAMOUS EPITHELIAL CELLS,UR FEW /HPF
[2025-06-07 19:51] LABS: UROTHELIAL CELLS,URINE NOT SEEN /HPF
[2025-06-07 20:57] VITALS: BP 127/69; PULSE 84
== END 2025-06-07 21:15 | disposition home or self-care (01) ==
LOC: JP.ED 16:45
DX: I95.1 Orthostatic hypotension (principal); G24.01 Drug induced subacute dyskinesia; I10 Essential (primary) hypertension; E11.9 Type 2 diabetes mellitus without complications; Z88.0 Allergy status to penicillin; Z88.2 Allergy status to sulfonamides; Z91.030 Bee allergy status; Z88.8 Allergy status to other drugs, medicaments and biological substances; Z79.4 Long term (current) use of insulin; Z79.82 Long term (current) use of aspirin; Z79.899 Other long term (current) drug therapy; Z90.49 Acquired absence of other specified parts of digestive tract
CPT/HCPCS: 36415; 71045; 80053; 81001; 83605; 85025; 96360; 96361; 99283; 99285; J7030

== ENCOUNTER 2025-06-09 13:25 | Observation (INO) | payer MEDICARE, BC ==
[2025-06-09 14:17] LABS: BASOPHILS ABSOLUTE AUTO 0.06 K/uL (0.00-0.10); BASOPHILS PERCENT AUTO 0.7 % (0.1-1.3); EOSINOPHILS ABSOLUTE AUTO 0.28 K/uL (0.00-0.40); EOSINOPHILS PERCENT AUTO 3.1 % (0.0-5.4); IMMATURE GRAN ABSOLUTE AUTO 0.03 K/uL (0.00-0.23); IMMATURE GRAN PERCENT AUTO 0.3 % (0.0-0.7); LYMPHOCYTES ABSOLUTE AUTO 1.56 K/uL (0.8-3.3); LYMPHOCYTES PERCENT AUTO 17.1 % (11.4-47.7); MONOCYTES ABSOLUTE AUTO 0.83 K/uL (0.20-0.90); MONOCYTES PERCENT AUTO 9.1 % (3.3-12.6); NEUTROPHILS ABSOLUTE AUTO 6.34 K/uL (1.0-7.6); NEUTROPHILS PERCENT AUTO 69.7 % (40.0-78.1); PLATELET COUNT,PLT 185 K/uL (130-375); RED BLOOD CELL COUNT 3.61 M/uL (4.14-5.76); WHITE BLOOD CELL COUNT,WBC 9.1 K/uL (3.2-11.0)
[2025-06-09] MEDS: methylPREDNISolone Sodium Succinate 125 MG/2 ML SDV IVPUSH ONE (14:30)
[2025-06-09 14:47] LABS: A/G RATIO 0.8 (1.2-2.2); ALANINE AMINOTRANSFERASE,ALT 39 U/L (12-78); ASPARTATE AMNIOTRANSFERASE,AST 29 U/L (15-37); BILIRUBIN TOTAL 0.9 mg/dL (0.2-1.0); BLOOD UREA NITROGEN,BUN 18 mg/dL (7-18); CARBON DIOXIDE,CO2 25 mmol/L (21-32); CHLORIDE,CL 107 mmol/L (100-108); CREATININE 1.4 mg/dL (0.8-1.3); EST CRCL DRUG DOSING (CG) 60.28 mL/min; ESTIMATED GFR 54 mL/min (>60); GLUCOSE RANDOM 240 mg/dL (74-106); POTASSIUM,K 4.4 mmol/L (3.6-5.2); PROTEIN TOTAL,TP 6.8 g/dL (6.4-8.2); SODIUM,NA 141 mmol/L (140-148)
[2025-06-09 17:24] LABS: APPEARANCE,URINE CLEAR (CLEAR); GLUCOSE,URINE NEGATIVE (NEGATIVE); OCCULT BLOOD,URINE NEGATIVE (NEGATIVE)
[2025-06-09 17:48] LABS: SQUAMOUS EPITHELIAL CELLS,UR FEW /HPF; UROTHELIAL CELLS,URINE FEW /HPF
[2025-06-09] MEDS ORDERED: Albuterol 0.083% 2.5 MG/3 ML Neb Soln NEB PRN (19:21)
[2025-06-09] MEDS ORDERED: Sodium Chloride 0.9% 10 ML Syringe FLUSH PRN (19:21)
[2025-06-09] MEDS ORDERED: Ondansetron 4 MG/2 ML SDV IV PRN (19:21)
[2025-06-09] MEDS ORDERED: Glucose Gel 15 GM in 37.5 GM Tube PO PRN (19:21)
[2025-06-09] MEDS ORDERED: 50% Dextrose in Water 50 ML Syringe IV PRN (19:21)
[2025-06-09] MEDS ORDERED: Acetaminophen/HYDROcodone 325-5 MG Tab PO PRN (19:21)
[2025-06-09] MEDS ORDERED: Insulin Lispro 100 Unit/ML 3 ML KwikPen SUBCUT SCH ×2 (20:00→21:00)
[2025-06-09] MEDS: DEUTETRABENAZINE 9 MG PO SCH (21:07)
[2025-06-09] MEDS: INSULIN LISPRO 100 UNIT/ML SUBCUT SCH ×2 (21:54)
[2025-06-10 05:52] LABS: PLATELET COUNT,PLT 119.0 K/uL (130-375); RED BLOOD CELL COUNT 3.31 M/uL (4.14-5.76); WHITE BLOOD CELL COUNT,WBC 7.3 K/uL (3.2-11.0)
[2025-06-10 06:21] LABS: BLOOD UREA NITROGEN,BUN 24.0 mg/dL (7-18); CARBON DIOXIDE,CO2 19.0 mmol/L (21-32); CHLORIDE,CL 105.0 mmol/L (100-108); CREATININE 1.4 mg/dL (0.8-1.3); EST CRCL DRUG DOSING (CG) 60.28 mL/min; ESTIMATED GFR 54.0 mL/min (>60); GLUCOSE RANDOM 322.0 mg/dL (74-106); POTASSIUM,K 3.9 mmol/L (3.6-5.2); SODIUM,NA 136.0 mmol/L (140-148)
[2025-06-10] MEDS: Magnesium Sulfate 2 GM/50 mL 2 GM in Premix Bag 1 BAG IV SCH (08:31)
[2025-06-10] MEDS: Tamsulosin 0.4 MG Cap.ER (PTOM) PO SCH (08:41)
[2025-06-10] MEDS: Finasteride 5 MG Tab (PTOM) PO SCH (08:41)
[2025-06-10] MEDS ORDERED: PROPRANOLOL HCL 80 MG PO SCH (09:00)
[2025-06-10] MEDS: Sodium Chloride 0.9% 10 ML Syringe FLUSH ONE (11:27)
[2025-06-10] MEDS: Iopamidol 755 Mg/ML 100 ML Bottle IV SCH (11:27)
[2025-06-10] MEDS: INSULIN GLARGINE HUMAN REC ANALOG 100 UNIT/ML SUBCUT SCH (12:07)
[2025-06-10 17:21] VITALS: BP 144/73; PULSE 97
[2025-06-11] MEDS ORDERED: TRULICITY 4.5 MG/0.5 ML SUBCUT SCH (09:00)
== END 2025-06-10 16:50 | disposition home or self-care (01) ==
LOC: JP.ED 13:25 → JP.MS 17:45
PROVIDERS: ADMIT Hospitalist; ATTEND Hospitalist
DX: I95.9 Hypotension, unspecified (principal); I10 Essential (primary) hypertension; K21.9 Gastro-esophageal reflux disease without esophagitis; E11.9 Type 2 diabetes mellitus without complications; F17.210 Nicotine dependence, cigarettes, uncomplicated; Z91.030 Bee allergy status; Z88.8 Allergy status to other drugs, medicaments and biological substances; Z88.0 Allergy status to penicillin; Z88.5 Allergy status to narcotic agent; Z79.4 Long term (current) use of insulin; Z79.899 Other long term (current) drug therapy
CPT/HCPCS: 36415; 71275; 80048; 80053; 81001; 82947; 83605; 83735; 84443; 84484; 85025; 85027; 93005; 99222; 99238; A9270-GY; J1650; J1815-GY; J2919; J3475; J7030; Q9967